=== PATIENT | female | born 1950 | race Caucasian/White ===

== ENCOUNTER → 2018-09-04 | Outpatient (CLI) | payer MEDICARE ==
--- NOTE | 2018-09-05 11:20 | BD ---
EXAMINATION TYPE: Axial Bone Density DATE OF EXAM: 09/04/2018 COMPARISON: NONE CLINICAL HISTORY: Postmenopausal female Height: 60 Weight: 162.8 FRAX RISK QUESTIONS: Alcohol (3 or more units per day): no Family History (Parent hip fracture): no Glucocorticoids (More than 3mos): no (Ex: prednisone, prednisolone, methylprednisolone, dexamethasone, and hydrocortisone). History of Fracture in Adulthood: yes Secondary Osteoporosis: 1. Type 1 Diabetes: no 2. Hyperthyroidism: no 3. Menopause before 45: no 4. Malnutrition: no 5. Chronic liver disease: no Rheumatoid Arthritis: no Current Tobacco Use: no RISK FACTORS HISTORY OF: Family History of Osteoporosis: no Active: no Diet low in dairy products/other sources of calcium: yes Postmenopausal woman: age55 Lost more than 2 inches in height since high school: yes MEDICATIONS: eye drops EXAM MEASUREMENTS: Bone mineral densitometry was performed using the [employer] System. Bone mineral density as measured about the Lumbar spine is: ----- L1-L4(G/cm2): 1.057 T Score Values are as follows: ----- L2: -1.8 ----- L3: -0.4 ----- L4: -0.5 ----- L1-L4: -1.0 Bone mineral density : baseline Bone mineral density about the R hip (g/cm2): 0.784 Bone mineral density about the L hip (g/cm2): 0.719 T Score values are as follows: -----R Neck: -1.8 -----L Neck: -2.3 -----R Total: -1.3 -----L Total: -1.4 Bone mineral density : baseline IMPRESSION: Osteopenia (T Score between -2.5 and -1). There is slightly increased risk of fracture and the patient may be considered for treatment. Re-Screen 2-5 years. NOTE: T-SCORE=SD OF THE YOUNG ADULT MEAN.
--- NOTE | 2018-09-08 12:16 | MM ---
Reason for exam: screening (asymptomatic). Last mammogram was performed 4 years and 3 months ago. History: Patient is postmenopausal. MG Screening Mammo w CAD Bilateral CC and MLO view(s) were taken. Prior study comparison: June 17, 2014, left breast MG work up mamm w CAD LT. June 08, 2014, bilateral MG screening mammo w CAD. There are scattered fibroglandular densities. No significant changes when compared with prior studies. ASSESSMENT: Negative, BI-RAD 1 RECOMMENDATION: Routine screening mammogram of both breasts in 1 year.
== END | disposition home or self-care (01) ==
LOC: RADMAMWWP 15:31
PROVIDERS: ATTEND Nurse Practitioner Women's Health
DX: Z12.31 Encounter for screening mammogram for malignant neoplasm of breast (principal); M85.80 Other specified disorders of bone density and structure, unspecified site; Z78.0 Asymptomatic menopausal state
CPT/HCPCS: 77067; 77080

== ENCOUNTER 2018-09-20 21:50 | Observation (INO) | payer MEDICARE ==
[2018-09-20] MEDS ORDERED: SODIUM CHLORIDE 0.9% 500 ML 500 ML IV STA (21:59)
[2018-09-20 22:44] LABS: Anisocytosis Slight; Basophils % (A) 0 %; Eosinophils # (A) 0.1 k/uL (0-0.7); Eosinophils % (A) 1 %; Hypochromasia Marked; Lymphocytes # (A) 1.7 k/uL (1.0-4.8); Lymphocytes % (A) 16 %; MCH 14.9 pg (25.0-35.0); MCV 59.5 fL (80.0-100.0); Mean Platelet Volume 6.4; Microcytosis Marked; Monocytes # (A) 0.4 k/uL (0-1.0); Monocytes % (A) 4 %; Neutrophils # (A) 8.1 k/uL (1.3-7.7); Neutrophils % (A) 77 %; Platelet Count 482 k/uL (150-450); Poikilocytosis Slight; RDW 18.8 % (11.5-15.5); WBC 10.6 k/uL (3.8-10.6)
--- NOTE | 2018-09-20 22:46 | ED ---
Recheck HPI <See Rodriguez - Last Filed: 09/21/18 00:46> - General Source: patient Mode of arrival: wheelchair Limitations: no limitations <Pina Byrne - Last Filed: 09/21/18 03:15> - General Chief Complaint: Recheck/Abnormal Lab/Rx Stated Complaint: Dr brooks-low hemoglobin Time Seen by Provider: 09/20/18 21:59 - History of Present Illness Initial Comments: 67-year-old female sent by primary care provider for low hemoglobin. Patient states she has not seen a primary provider and last 5-6 years as she has been taken care of her mother. She states she was sent for laboratory values prior to her initial visit with a new practitioner. She was called when she had a low hemoglobin reading. Patient states she has had some shortness of breath for the past 6 months with ambulation She states it improved with sitting still. Patient also admits to cold intolerance. Patient denies any palpitations, syncope, presyncope, chest pain, dizziness, melena, hematochezia, hematemesis, coffee-ground emesis. Patient states she does have history of hemorrhoids and does have occasional rectal bleeding with constipation. Patient denies any recent diarrhea, abdominal pain, nausea, vomiting, fever, chills, lower extremity edema, smoking history. Patient denies any wheezing, calf swelling or pain, recent travel, history of cancer. Remainder of ROS negative, upon arrival patient is well-appearing, no signs of acute distress. Vital signs reveal elevation of heart rate and blood pressure. Remainder of vital signs within a couple limits. (Pina Byrne) - Related Data Home Medications Medication Instructions Recorded Confirmed Naproxen Sodium [Aleve] 220 mg PO DAILY 09/20/18 09/20/18 Allergies Allergy/AdvReac Type Severity Reaction Status Date / Time No Known Allergies Allergy Verified 09/20/18 22:50 Review of Systems ROS Other: All systems not noted in ROS Statement are negative. <See Rodriguez - Last Filed: 09/21/18 00:46> ROS Other: All systems not noted in ROS Statement are negative. <Pina Byrne - Last Filed: 09/21/18 03:15> ROS Statement: Those systems with pertinent positive or pertinent negative responses have been documented in the HPI. Past Medical History Past Medical History: No Reported History History of Any Multi-Drug Resistant Organisms: None Reported Past Surgical History: No Surgical Hx Reported Past Psychological History: No Psychological Hx Reported Smoking Status: Never smoker Past Alcohol Use History: Rare Past Drug Use History: None Reported <Pina Byrne - Last Filed: 09/21/18 03:15> General Exam <RodriguezSee - Last Filed: 09/21/18 00:46> Limitations: no limitations <Pina Byrne - Last Filed: 09/21/18 03:15> - General Exam Comments Initial Comments: General: The patient is awake and alert, in no distress, and does not appear acutely ill. Eye: Pupils are equal, round and reactive to light, extra-ocular movements are intact. No nystagmus. There is normal conjunctiva bilaterally. No signs of icterus. Pale her eyelids, mucous membranes Ears, nose, mouth and throat: There are moist mucous membranes and no oral lesions. Neck: The neck is supple, there is no tenderness or JVD. Cardiovascular: There is a regular rate and rhythm. No murmur, rub or gallop is appreciated. Respiratory: Lungs are clear to auscultation, respirations are non-labored, breath sounds are equal. No wheezes, stridor, rales, or rhonchi. Gastrointestinal: Soft, non-distended, non-tender abdomen without masses or organomegaly noted. There is no rebound or guarding present. No CVA tenderness. Bowel sounds are unremarkable. Musculoskeletal: Normal ROM, no tenderness. Strength 5/5. Sensation intact. Pulses equal bilaterally 2+. Neurological: A&O x 3. CN II-XII intact, There are no obvious motor or sensory deficits. Coordination appears grossly intact. Speech is normal. Skin: Skin is warm and dry and no rashes or lesions are noted. Psychiatric: Cooperative, appropriate mood & affect, normal judgment. (Pina Byrne) Course <See Rodriguez - Last Filed: 09/21/18 00:46> <Pina Byrne - Last Filed: 09/21/18 03:15> Vital Signs 09/20/18 09/21/18 09/21/18 21:52 00:45 00:55 Temperature 99.0 F 98.4 F 98.3 F Pulse Rate 104 H 81 82 Respiratory 20 16 16 Rate Blood Pressure 207/77 147/75 159/65 O2 Sat by Pulse 100 99 100 Oximetry 09/21/18 09/21/18 01:25 02:35 Temperature 98.0 F 98.0 F Pulse Rate 75 73 Respiratory 16 16 Rate Blood Pressure 151/85 148/80 O2 Sat by Pulse 100 100 Oximetry - Reevaluation(s) Reevaluation #1: 09/21/18 00:47 Dr. Mathew notified of admission (See Rodriguez) Medical Decision Making - Lab Data Result diagrams: 09/20/18 22:26 09/20/18 22:26 <See Rodriguez - Last Filed: 09/21/18 00:46> - Lab Data Result diagrams: 09/20/18 22:26 09/20/18 22:26 <iPna Byrne - Last Filed: 09/21/18 03:15> - Medical Decision Making Patient reevaluated by myself, Dr. Rodriguez. Patient complains of fatigue and exertional dyspnea. Heart rate is 1:15 at this time. Patient and family updated. Dr. Mathew paged for admission. (See Rodriguez) Hemoglobin 6.3. Patient is symptomatic with shortness of breath in relation. EKG no acute findings. Troponin negative. No lower extremity edema. Lung examination clear. Patient well-appearing at this time do feel patient's shortness of breath is secondary to anemia. Occult blood negative. Patient is not on anticoagulation therapy. At this time I will transfuse patient for symptomatic anemia with hemoglobin less than 7. No transfusion reaction noted. Patient admitted for observation, patient's primary care provider Dr. Mathew accepted admission. No further orders after admitting provider discussed case with attending provider Dr. Rodriguez. (Pina Byrne) - Lab Data Lab Results 09/20/18 09/20/18 09/20/18 Range/Units 22:23 22:24 22:26 WBC (3.8-10.6) k/uL RBC (3.80-5.40) m/uL Hgb (11.4-16.0) gm/dL Hct (34.0-46.0) % MCV (80.0-100.0) fL MCH (25.0-35.0) pg MCHC (31.0-37.0) g/dL RDW (11.5-15.5) % Plt Count (150-450) k/uL Neutrophils % % Lymphocytes % % Monocytes % % Eosinophils % % Basophils % % Neutrophils # (1.3-7.7) k/uL Lymphocytes # (1.0-4.8) k/uL Monocytes # (0-1.0) k/uL Eosinophils # (0-0.7) k/uL Basophils # (0-0.2) k/uL Hypochromasia Poikilocytosis Anisocytosis Microcytosis PT (9.0-12.0) sec INR (<1.2) APTT (22.0-30.0) sec Sodium (137-145) mmol/L Potassium (3.5-5.1) mmol/L Chloride (98-107) mmol/L Carbon Dioxide (22-30) mmol/L Anion Gap mmol/L BUN (7-17) mg/dL Creatinine (0.52-1.04) mg/dL Est GFR (CKD-EPI)AfAm (>60 ml/min/1.73 sqM) Est GFR (CKD-EPI)NonAf (>60 ml/min/1.73 sqM) Glucose (74-99) mg/dL Calcium (8.4-10.2) mg/dL Total Bilirubin (0.2-1.3) mg/dL AST (14-36) U/L ALT (9-52) U/L Alkaline Phosphatase (38-126) U/L Total Creatine Kinase (30-135) U/L CK-MB (CK-2) (0.0-2.4) ng/mL CK-MB (CK-2) Rel Index Troponin I (0.000-0.034) ng/mL Total Protein (6.3-8.2) g/dL Albumin (3.5-5.0) g/dL Stool Occult Blood Negative (Negative) Blood Type O Positive Blood Type Confirm O Positive Blood Type Recheck CABO Indicated Antibody Screen NEGATIVE Crossmatch See Detail Spec Expiration Date 09/23/2018232509/20/18 09/20/18 09/20/18 Range/Units 22:26 22:26 22:26 WBC 10.6 (3.8-10.6) k/uL RBC 4.20 (3.80-5.40) m/uL Hgb 6.3 L* (11.4-16.0) gm/dL Hct 25.0 L (34.0-46.0) % MCV 59.5 L (80.0-100.0) fL MCH 14.9 L (25.0-35.0) pg MCHC 25.0 L (31.0-37.0) g/dL RDW 18.8 H (11.5-15.5) % Plt Count 482 H (150-450) k/uL Neutrophils % 77 % Lymphocytes % 16 % Monocytes % 4 % Eosinophils % 1 % Basophils % 0 % Neutrophils # 8.1 H (1.3-7.7) k/uL Lymphocytes # 1.7 (1.0-4.8) k/uL Monocytes # 0.4 (0-1.0) k/uL Eosinophils # 0.1 (0-0.7) k/uL Basophils # 0.0 (0-0.2) k/uL Hypochromasia Marked Poikilocytosis Slight Anisocytosis Slight Microcytosis Marked PT (9.0-12.0) sec INR (<1.2) APTT (22.0-30.0) sec Sodium 135 L (137-145) mmol/L Potassium 4.5 (3.5-5.1) mmol/L Chloride 102 (98-107) mmol/L Carbon Dioxide 23 (22-30) mmol/L Anion Gap 10 mmol/L BUN 17 (7-17) mg/dL Creatinine 0.96 (0.52-1.04) mg/dL Est GFR (CKD-EPI)AfAm 71 (>60 ml/min/1.73 sqM) Est GFR (CKD-EPI)NonAf 61 (>60 ml/min/1.73 sqM) Glucose 127 H (74-99) mg/dL Calcium 9.5 (8.4-10.2) mg/dL Total Bilirubin 0.6 (0.2-1.3) mg/dL AST 20 (14-36) U/L ALT 22 (9-52) U/L Alkaline Phosphatase 104 (38-126) U/L Total Creatine Kinase 79 (30-135) U/L CK-MB (CK-2) 0.5 (0.0-2.4) ng/mL CK-MB (CK-2) Rel Index 0.6 Troponin I <0.012 (0.000-0.034) ng/mL Total Protein 7.9 (6.3-8.2) g/dL Albumin 4.6 (3.5-5.0) g/dL Stool Occult Blood (Negative) Blood Type Blood Type Confirm Blood Type Recheck Antibody Screen Crossmatch Spec Expiration Date 09/20/18 Range/Units 22:26 WBC (3.8-10.6) k/uL RBC (3.80-5.40) m/uL Hgb (11.4-16.0) gm/dL Hct (34.0-46.0) % MCV (80.0-100.0) fL MCH (25.0-35.0) pg MCHC (31.0-37.0) g/dL RDW (11.5-15.5) % Plt Count (150-450) k/uL Neutrophils % % Lymphocytes % % Monocytes % % Eosinophils % % Basophils % % Neutrophils # (1.3-7.7) k/uL Lymphocytes # (1.0-4.8) k/uL Monocytes # (0-1.0) k/uL Eosinophils # (0-0.7) k/uL Basophils # (0-0.2) k/uL Hypochromasia Poikilocytosis Anisocytosis Microcytosis PT 10.2 (9.0-12.0) sec INR 0.9 (<1.2) APTT 24.6 (22.0-30.0) sec Sodium (137-145) mmol/L Potassium (3.5-5.1) mmol/L Chloride (98-107) mmol/L Carbon Dioxide (22-30) mmol/L Anion Gap mmol/L BUN (7-17) mg/dL Creatinine (0.52-1.04) mg/dL Est GFR (CKD-EPI)AfAm (>60 ml/min/1.73 sqM) Est GFR (CKD-EPI)NonAf (>60 ml/min/1.73 sqM) Glucose (74-99) mg/dL Calcium (8.4-10.2) mg/dL Total Bilirubin (0.2-1.3) mg/dL AST (14-36) U/L ALT (9-52) U/L Alkaline Phosphatase (38-126) U/L Total Creatine Kinase (30-135) U/L CK-MB (CK-2) (0.0-2.4) ng/mL CK-MB (CK-2) Rel Index Troponin I (0.000-0.034) ng/mL Total Protein (6.3-8.2) g/dL Albumin (3.5-5.0) g/dL Stool Occult Blood (Negative) Blood Type Blood Type Confirm Blood Type Recheck Antibody Screen Crossmatch Spec Expiration Date - EKG Data EKG Comments: A 12-lead EKG was performed and shows the following: Rate is 85bpm, and rhythm is normal sinus. There are normal QRS complexes and normal R-wave progression. ST segments have no elevation or depression, and NH segments appear normal. Reviewed by myself and Dr Rodriguez. (Pina Byrne) Disposition <See Rodriguez - Last Filed: 09/21/18 00:46> Is patient prescribed a controlled substance at d/c from ED?: No Time of Disposition: 03:15 Decision to Admit Reason: Admit from EC Decision Date: 09/21/18 Decision Time: 00:00 <Pina Byrne - Last Filed: 09/21/18 03:15> Clinical Impression: Symptomatic anemia Disposition: ADMITTED IP TO THIS [facility] Condition: Stable
[2018-09-20 22:51] LABS: HGB 6.3 gm/dL (11.4-16.0)
[2018-09-20 22:59] LABS: INR 0.9 (<1.2); Partial Thromboplastin Time 24.6 sec (22.0-30.0); Prothrombin Time 10.2 sec (9.0-12.0)
[2018-09-20 23:15] LABS: Creatine Kinase 79 U/L (30-135)
[2018-09-20 23:17] LABS: Albumin 4.6 g/dL (3.5-5.0); Calcium 9.5 mg/dL (8.4-10.2); Potassium 4.5 mmol/L (3.5-5.1); Total Bilirubin 0.6 mg/dL (0.2-1.3); Total Protein 7.9 g/dL (6.3-8.2)
[2018-09-20 23:27] LABS: Creatine Kinase MB 0.5 ng/mL (0.0-2.4); Troponin I <0.012 ng/mL (0.000-0.034)
[2018-09-21] MEDS ORDERED: NALOXONE 0.4 MG/ML 1 ML VIAL IV PRN (00:52)
[2018-09-21] MEDS ORDERED: SODIUM CHLORIDE 0.9% 1,000 ML IV SCH (01:00)
[2018-09-21 03:49] LABS: Anisocytosis Moderate; Basophils % (A) 0 %; Eosinophils # (A) 0.2 k/uL (0-0.7); Eosinophils % (A) 2 %; HCT 25.3 % (34.0-46.0); Hypochromasia Marked; Lymphocytes # (A) 2.4 k/uL (1.0-4.8); Lymphocytes % (A) 23 %; MCH 16.8 pg (25.0-35.0); MCHC 27.9 g/dL (31.0-37.0); MCV 60.3 fL (80.0-100.0); Mean Platelet Volume 7.2; Microcytosis Marked; Monocytes # (A) 0.4 k/uL (0-1.0); Monocytes % (A) 4 %; Neutrophils # (A) 7.3 k/uL (1.3-7.7); Neutrophils % (A) 69 %; Platelet Count 440 k/uL (150-450); Poikilocytosis Moderate; RBC 4.19 m/uL (3.80-5.40); RDW 20.3 % (11.5-15.5); WBC 10.6 k/uL (3.8-10.6)
[2018-09-21 04:10] LABS: Albumin 4.2 g/dL (3.5-5.0); Calcium 9.3 mg/dL (8.4-10.2); Potassium 4.6 mmol/L (3.5-5.1); Total Bilirubin 1.7 mg/dL (0.2-1.3); Total Protein 7.2 g/dL (6.3-8.2)
[2018-09-21 05:02] VITALS: BMI 32.2
[2018-09-21 05:22] VITALS: RESP 18
[2018-09-21 21:33] VITALS: BP 166/77; PULSE 74; TEMP 98.2
[2018-09-22 07:11] LABS: Anisocytosis Moderate; HGB 8.1 gm/dL (11.4-16.0); Hypochromasia Marked; MCH 18.7 pg (25.0-35.0); MCV 64.5 fL (80.0-100.0); Mean Platelet Volume 7.9; Microcytosis Marked; Platelet Count 426 k/uL (150-450); Poikilocytosis Marked; RBC 4.34 m/uL (3.80-5.40)
--- NOTE | 2018-09-23 12:54 | P.HPIM ---
History of Present Illness H&P Date: 09/20/18 (computers down most of sunday) Chief Complaint: fatigue, hgb 6 Pt was sent to Er secondary to hgb obtained in office Sunday, 6.0. pt stayed that she had been taking between 3 to 6 otc Aleve daily over the past year. She had not carlos Doctor in years Review of Systems Constitutional: Reports as per HPI Ears, nose, mouth and throat: Reports as per HPI Cardiovascular: Reports as per HPI Respiratory: Reports as per HPI Gastrointestinal: Reports as per HPI Genitourinary: Reports as per HPI, Reports dysmenorrhea Menstruation: Reports as per HPI Musculoskeletal: Reports as per HPI Integumentary: Reports as per HPI, Reports color changes Neurological: Reports as per HPI Psychiatric: Reports as per HPI Past Medical History Past Medical History: No Reported History Additional Past Medical History / Comment(s): one kidney stone in early 30s History of Any Multi-Drug Resistant Organisms: None Reported Past Surgical History: No Surgical Hx Reported Additional Past Surgical History / Comment(s): cataracts bilat Past Psychological History: No Psychological Hx Reported Smoking Status: Never smoker Past Alcohol Use History: Rare Past Drug Use History: None Reported Medications and Allergies Home Medications Medication Instructions Recorded Confirmed Type Naproxen Sodium [Aleve] 220 mg PO DAILY 09/20/18 09/20/18 History Allergies Allergy/AdvReac Type Severity Reaction Status Date / Time No Known Allergies Allergy Verified 09/20/18 22:50 Physical Exam Osteopathic Statement: *. No significant issues noted on an osteopathic structural exam other than those noted in the History and Physical/Consult. Heent:peerla ,eomi, poor dental hygene Heart:tachycardia Lung:ctab Abd:soft, pos Bs, nontender no mass Ext no edema, no cyanosis, no claudication Neuro: wnl guiac neg per ER Results CBC & Chem 7: 09/21/18 20:15 09/21/18 03:28 Thrombosis Risk Factor Assmnt - Choose All That Apply Any of the Below Risk Factors Present?: Yes Each Factor Represents 1 point: Obesity (BMI >25) Other Risk Factors: Yes Each Risk Factor Represents 2 Points: Age 61-74 years Other congenital or acquired thrombophilia - If yes, enter type in comment: No Thrombosis Risk Factor Assessment Total Risk Factor Score: 3 Thrombosis Risk Factor Assessment Level: Moderate Risk Assessment and Plan (1) Symptomatic anemia Status: Acute Code(s): D64.9 - ANEMIA, UNSPECIFIED SNOMED Code(s): 419206959 Plan: transfuse 2 units prbc's rpt hgb 9.0 D/C home, appt in office sunday schedule egd/colonscopy as op JOSETTE nsaid at all Time with Patient: Greater than 30
--- NOTE | 2018-09-23 12:58 | P.DS ---
Providers Date of admission: 09/21/18 00:49 Expected date of discharge: 09/21/18 Attending physician: Jose Antonio Sainz Consults: none Primary care physician: Jose Antonio Sainz - Discharge Diagnosis(es) (1) Symptomatic anemia Status: Acute Patient Condition at Discharge: Stable Plan - Discharge Summary Discharge Rx Participant: Yes New Discharge Prescriptions: Discontinued Naproxen Sodium [Aleve] 220 mg PO DAILY Follow up Appointment(s)/Referral(s): Jose Antonio Sainz Jr, DO [Primary Care Provider] - 1-2 days Discharge Disposition: HOME SELF-CARE
--- NOTE | 2018-09-23 15:39 | CDI ---
Documentation Clarification Form Date: 09/23/18 From: Concepcion Martinez Phone: If you have a question regarding this query, please contact Betzy Goff at [phone] between 8am and 5pm. Admit Date: 09/21/2018 12:49:00 AM Patient Name: Betzy Rowe Visit Number: [id number] Discharge Date: 09/21/2018 9:52:00 PM ATTENTION: The Clinical Documentation Specialists (CDI) and [facility] Coding Staff appreciate your assistance in clarifying documentation. Please respond to the clarification below the line at the bottom and electronically sign. The CDI & [facility] Coding staff will review the response and follow-up if needed. Please note: Queries are made part of the Legal Health Record. If you have any questions, please contact the author of this message via ITS. Dr. Jose Antonio Sainz A diagnosis of anemia lacks specificity to accurately reflect your patients severity of condition and clarification is needed. History/Risk Factors: Patient has a history of hemorrhoids and does have occasional rectal bleeding with constipation. Clinical indicators: Fatigue and low hgb. Hemoglobin: 6.3 Hematocrit: 25.0 Treatment: 1 unit of PRBCs transfused, monitoring hgb & hct. In order to capture the severity of condition, please clarify the type of anemia and etiology if known: Acute blood loss anemia Acute on chronic blood loss anemia Chronic blood loss anemia Iron deficiency anemia Anemia due to malignancy Nutritional anemia Anemia of chronic kidney disease Unable to determine Other, please specify MTDD
== END 2018-09-21 21:52 | disposition home or self-care (01) ==
LOC: EC 21:50 → INTOOBSV 09-21 00:49 → 3SCARD 09-21 00:49 → 3NMEDONC 09-21 02:06 → UNDODISIN 09-21 21:52
PROVIDERS: ADMIT Family Medicine; ATTEND Family Medicine
PROC: 30233N1 Transfusion of Nonautologous Red Blood Cells into Peripheral Vein, Percutaneous Approach (ICD-10-PCS; principal; 2018-09-21)
DX: D64.9 Anemia, unspecified (principal); K64.9 Unspecified hemorrhoids; N94.6 Dysmenorrhea, unspecified; Z87.442 Personal history of urinary calculi; Z79.1 Long term (current) use of non-steroidal anti-inflammatories (NSAID); E66.9 Obesity, unspecified; Z68.32 Body mass index [BMI] 32.0-32.9, adult
CPT/HCPCS: 36430; 99285; 36415; 93005; 86900; 86901; 80053 ×2; 82550; 82553; 84484; 85025 ×2; 85027; 85610; 85730; 86850; 86920 ×2; 82272; G0378 ×2; P9016

== ENCOUNTER → 2020-04-08 | Outpatient (CLI) | payer MEDICARE ==
--- NOTE | 2020-04-12 08:28 | MM ---
Reason for exam: screening (asymptomatic). Last mammogram was performed 1 year and 7 months ago. History: Patient is postmenopausal. Physical Findings: A clinical breast exam by your physician is recommended on an annual basis and results should be correlated with mammographic findings. MG 3D Screening Mammo W/Cad Bilateral CC and MLO view(s) were taken. Prior study comparison: September 04, 2018, bilateral MG screening mammo w CAD. June 17, 2014, left breast MG work up mamm w CAD LT. There are scattered fibroglandular densities. No significant changes when compared with prior studies. ASSESSMENT: Negative, BI-RAD 1 RECOMMENDATION: Routine screening mammogram of both breasts in 1 year.
== END | disposition home or self-care (01) ==
LOC: RADMAMWWP 15:21
PROVIDERS: ATTEND Nurse Practitioner Women's Health
DX: Z12.31 Encounter for screening mammogram for malignant neoplasm of breast (principal)
CPT/HCPCS: 77063; 77067

== ENCOUNTER → 2021-05-09 | Outpatient (CLI) | payer MEDICARE ==
--- NOTE | 2021-05-09 15:39 | BD ---
EXAMINATION TYPE: Axial Bone Density DATE OF EXAM: 05/09/2021 COMPARISON: 09/04/2018 CLINICAL HISTORY: Height: 59.2 IN Weight: 166 LBS RISK FACTORS HISTORY OF: Active: LIMITED Diet low in dairy products/other sources of calcium: YES Postmenopausal woman: AGE 50 MEDICATIONS: Thyroid Medications: YES Which medication: Levothyroxine How Lon YEARS Additional Medications: VIT D, LEVOTHYROXINE,ANTACID, STATIN EXAM MEASUREMENTS: Bone mineral densitometry was performed using the [employer] System. Bone mineral density as measured about the Lumbar spine is: ----- L1-L4(G/cm2): 0.938 T Score Values are as follows: ----- L2: -3.2 ----- L3: -1.1 ----- L4: -1.5 ----- L1-L4: -2.0 Bone mineral density has: Decreased -11.1% since study of: 09/04/2018 Bone mineral density about the R hip (g/cm2): 0.747 Bone mineral density about the L hip (g/cm2): 0.630 T Score values are as follows: -----R Neck: -2.1 -----L Neck: -2.9 -----R Total: -2.0 -----L Total: -2.0 Bone mineral density has: Decreased -9.7% since study of: 09/04/2018 IMPRESSION: Osteopenia NOTE: T-SCORE=SD OF THE YOUNG ADULT MEAN.
--- NOTE | 2021-05-11 09:32 | MM ---
Reason for exam: screening (asymptomatic). Last mammogram was performed 1 year and 1 month ago. History: Patient is postmenopausal. Physical Findings: A clinical breast exam by your physician is recommended on an annual basis and results should be correlated with mammographic findings. MG 3D Screening Mammo W/Cad Bilateral CC and MLO view(s) were taken. Prior study comparison: April 08, 2020, bilateral MG 3d screening mammo w/cad. September 04, 2018, bilateral MG screening mammo w CAD. June 08, 2014, bilateral MG screening mammo w CAD. There are scattered fibroglandular densities. No significant changes when compared with prior studies. ASSESSMENT: Negative, BI-RAD 1 RECOMMENDATION: Routine screening mammogram of both breasts in 1 year.
== END | disposition home or self-care (01) ==
LOC: RADMAMWWP 12:33
PROVIDERS: ATTEND Family Medicine
DX: Z12.31 Encounter for screening mammogram for malignant neoplasm of breast (principal); M85.80 Other specified disorders of bone density and structure, unspecified site
CPT/HCPCS: 77063; 77067; 77080

== ENCOUNTER 2022-03-12 17:18 | Emergency (ER) | payer MEDICARE ==
[2022-03-12 18:58] VITALS: BP 143/97; PULSE 100; RESP 18; TEMP 98.2
[2022-03-12] MEDS ORDERED: ACET/COD 300 MG/30 MG STARTER PACK 6 TAB BTL PO STA (21:43)
--- NOTE | 2022-03-12 21:43 | ED ---
General Adult HPI - General Chief complaint: Skin/Abscess/Foreign Body Stated complaint: Rash Time Seen by Provider: 03/12/22 21:20 Source: patient, family, RN notes reviewed, old records reviewed Mode of arrival: ambulatory Limitations: no limitations - History of Present Illness Initial comments: Well-appearing 71-year-old female presents ambulatory with a family member complaining of rash around her mouth for 3 weeks. Patient states that she seen her primary care doctor who prescribed her amoxicillin and clindamycin lotion. She states that it continues to be red and burning, not getting better. She denies any other rashes. No peeling skin, no fevers, no nausea, vomiting or diarrhea. She was told to follow-up with dermatology but cannot get in until the end of March. She states that she cannot handle the discomfort and tenderness. Bobby is not helping with her pain. -: week(s) (3) Location: face (around mouth ) Radiation: non-radiation Quality: burning Consistency: constant Improves with: none Associated Symptoms: denies other symptoms Treatments Prior to Arrival: other (Amoxicillin and clindamycin lotion) - Related Data Previous Rx's Medication Instructions Recorded Tacrolimus [Tacrolimus 0.1%] 1 applic TOPICAL BID 21 Days #60 gm 03/12/22 Allergies Allergy/AdvReac Type Severity Reaction Status Date / Time No Known Allergies Allergy Verified 03/12/22 18:58 Review of Systems ROS Statement: Those systems with pertinent positive or pertinent negative responses have been documented in the HPI. ROS Other: All systems not noted in ROS Statement are negative. Past Medical History Past Medical History: No Reported History Additional Past Medical History / Comment(s): one kidney stone in early 30s and one in early 20s History of Any Multi-Drug Resistant Organisms: None Reported Past Surgical History: No Surgical Hx Reported Additional Past Surgical History / Comment(s): cataracts bilat Past Psychological History: No Psychological Hx Reported Past Alcohol Use History: Rare Past Drug Use History: None Reported General Exam Limitations: no limitations General appearance: alert, in no apparent distress Head exam: Present: atraumatic Eye exam: Present: normal appearance. Absent: periorbital swelling, periorbital tenderness ENT exam: Present: mucous membranes moist, other (poor dentition) Neck exam: Present: full ROM. Absent: tenderness, meningismus, lymphadenopathy Respiratory exam: Absent: respiratory distress, accessory muscle use Cardiovascular Exam: Present: regular rate Neurological exam: Present: alert, oriented X3, normal gait Psychiatric exam: Present: normal affect, normal mood Skin exam: Present: warm, erythema (perioral). Absent: cyanosis, diaphoretic, pallor Course Vital Signs 03/12/22 18:53 Temperature 98.2 F Pulse Rate 100 Respiratory 18 Rate Blood Pressure 143/97 O2 Sat by Pulse 98 Oximetry Medical Decision Making - Medical Decision Making Patient presents with perioral rash for 3 weeks. She did take amoxicillin as prescribed by her primary care doctor and has been using clindamycin lotion with no relief. She denies any fevers. No other rashes. No peeling skin. She does take medication for hypothyroid, GERD and cholesterol, no new medications. This appears to be perioral dermatitis. She was directed to stop using the clindamycin lotion. Use warm water to wash face daily and pat dry. Apply tacro limus cream twice a day. Follow-up with dermatology. Case discussed with Dr. Tillman. Disposition Clinical Impression: Perioral dermatitis Disposition: HOME SELF-CARE Condition: Good Instructions (If sedation given, give patient instructions): Dermatitis (ED) Additional Instructions: Stop using the clindamycin lotion. Do not put any other makeup or lotions on face. Wash face with warm water only, no soaps and pat dry. Apply tacrolimus cream twice a day and follow up with dermatology. Prescriptions: Tacrolimus [Tacrolimus 0.1%] 1 applic TOPICAL BID 21 Days #60 gm Is patient prescribed a controlled substance at d/c from ED?: No Referrals: Jose Antonio Sainz Jr, DO [Primary Care Provider] - 1-2 days Maureen oHpe MD [REFERRING] - 1-2 days Time of Disposition: 21:45
[2022-03-12] MEDS ORDERED: Acetaminophen-Codeine 300-30mg TAB PO STA (21:45)
== END 2022-03-12 22:10 | disposition home or self-care (01) ==
LOC: EC 17:18
DX: L71.0 Perioral dermatitis (principal)
CPT/HCPCS: 99282

== ENCOUNTER → 2022-05-31 | Outpatient (CLI) | payer MEDICARE ==
--- NOTE | 2022-06-01 10:07 | MM ---
Reason for Exam: Screening (asymptomatic). Last mammogram was performed 1 year(s) and 1 month(s) ago. Patient History: Menarche at age 12. Postmenopausal. Risk Values: Sonal 5 year model risk: 1.3%. NCI Lifetime model risk: 3.5%. Prior Study Comparison: 09/04/2018 Bilateral Screening Mammogram, [facility]. 04/08/2020 Bilateral Screening Mammogram, [facility]. 05/09/2021 Bilateral Screening Mammogram, [facility]. Tissue Density: There are scattered fibroglandular densities. Findings: Analyzed By CAD. There is no suspicious group of microcalcifications or new suspicious mass in either breast. No significant change from prior exams. Overall Assessment: Negative, BI-RAD 1 Management: Screening Mammogram of both breasts in 1 year. A clinical breast exam by your physician is recommended on an annual basis and results should be correlated with mammographic findings. Electronically signed and approved by: Baltazar Pearson D.O.
== END | disposition home or self-care (01) ==
LOC: RADMAMWWP 15:04
PROVIDERS: ATTEND Family Medicine
DX: Z12.31 Encounter for screening mammogram for malignant neoplasm of breast (principal); Z00.01 Encounter for general adult medical examination with abnormal findings
CPT/HCPCS: 77063; 77067

== ENCOUNTER 2022-07-18 16:43 | Emergency (ER) | payer MEDICARE ==
[2022-07-18] MEDS ORDERED: LIDOCAINE 1% INJ 10MG/ML (30 ML VIAL-PF) SQ ONE (16:51)
--- NOTE | 2022-07-18 16:57 | ED ---
Fall HPI - General Chief Complaint: Fall Stated Complaint: fall Time Seen by Provider: 07/18/22 16:45 - History of Present Illness Initial Comments: Patient is a 71-year-old female presenting to the emergency room via EMS after attempting to step out of a door and catching her boot on the ground causing her to fall forward landing on her left arm and face. She has a laceration left eyebrow; she denies any blurred vision, double vision or loss of vision. She denies any pain in any extremities including her left arm which she fell on. She denies any range of motion impairment in her left arm or any other extremities. She denies any syncope pre-or post fall, dizziness or lethargy. She has some pain at the site of her laceration but denies any other head or neck pain. She reports taking aspirin periodically as for knee pain but not daily. She is not on any other blood thinners. She states that her tetanus vaccination is up-to-date. She has a history of renal stones along with arthritis but does not take any medications on a regular basis. - Related Data Previous Rx's Medication Instructions Recorded Tacrolimus [Tacrolimus 0.1%] 1 applic TOPICAL BID 21 Days #60 gm 03/12/22 Allergies Allergy/AdvReac Type Severity Reaction Status Date / Time No Known Allergies Allergy Verified 03/12/22 18:58 Review of Systems ROS Statement: Those systems with pertinent positive or pertinent negative responses have been documented in the HPI. ROS Other: All systems not noted in ROS Statement are negative. Past Medical History Past Medical History: Osteoarthritis (OA) Additional Past Medical History / Comment(s): one kidney stone in early 30s and one in early 20s History of Any Multi-Drug Resistant Organisms: None Reported Past Surgical History: No Surgical Hx Reported Additional Past Surgical History / Comment(s): cataracts bilat Past Psychological History: No Psychological Hx Reported Past Alcohol Use History: Rare Past Drug Use History: None Reported General Exam General appearance: alert, in no apparent distress Head exam: Present: normocephalic Expanded Head exam: Present: laceration (Above left eyebrow 3 cm in length). Absent: hematoma Eye exam: Present: normal appearance, PERRL, EOMI. Absent: scleral icterus, conjunctival injection, periorbital swelling ENT exam: Present: normal exam, mucous membranes moist Neck exam: Present: other (C-collar intact) Respiratory exam: Present: normal lung sounds bilaterally. Absent: respiratory distress, wheezes, rales, rhonchi, stridor Cardiovascular Exam: Present: regular rate, normal rhythm, normal heart sounds. Absent: systolic murmur, diastolic murmur, rubs, gallop, clicks GI/Abdominal exam: Present: soft, normal bowel sounds. Absent: distended, tenderness, guarding, rebound, rigid Extremities exam: Present: normal inspection, full ROM. Absent: tenderness, pedal edema, joint swelling Back exam: Present: normal inspection Neurological exam: Present: alert, oriented X3, CN II-XII intact Psychiatric exam: Present: normal affect, normal mood Skin exam: Present: other (Laceration as above) Course Vital Signs 07/18/22 07/18/22 17:05 17:09 Temperature 97.6 F Pulse Rate 97 88 Respiratory 16 16 Rate Blood Pressure 177/100 154/90 O2 Sat by Pulse 98 100 Oximetry Procedures - Laceration Laceration #1 Site: face (Above left eyebrow) Size (cm): 3 Description: linear Depth: simple, single layer Anesthetic Used: lidocaine 1% Anesthesia Technique: local infiltration Pre-repair: wound explored, irrigated extensively Type of Sutures: nylon Size of Sutures: 5-0 Number of Sutures: 6 Technique: simple, interrupted Patient Tolerated Procedure: well, no complications Medical Decision Making - Medical Decision Making 71-year-old female with trip and fall with head trauma no extremity pain or loss of consciousness. Due to head trauma will obtain CT of the brain and cervical spine. No indication for other diagnostic imaging or laboratory studies. Laceration above left eyebrow to be closed via sutures after computed tomography scan. Tetanus shot up-to-date. No indication for antibiotic therapy. She denies analgesic need at this time. Will monitor. CT of the brain and cervical spine without contrast image interpreted by me showing no intracranial bleed or mass effect. No cervical fracture or dislocation. Report by radiologist of CT also reviewed. Neck exam after cervical collar removal shows no evidence of laceration, tenderness or muscle spasms. Laceration closure above left eyebrow without complication. Wound care and follow-up instructions and return parameters regarding head trauma reviewed. Will discharge home with a Tylenol 3 starter pack to utilize for pain as needed advising to avoid the use of aspirin for pain. Case discussed with Dr. Gomez. - Radiology Data Radiology results: report reviewed, image reviewed Computed tomography scan of the brain and cervical spine as interpreted by radiologist cerebral atrophy. No acute intracranial abnormalities. Mild cervical spondylitic changes. No fracture Disposition Clinical Impression: Fall, Laceration Disposition: HOME SELF-CARE Instructions (If sedation given, give patient instructions): Care For Your Stitches (ED), Laceration (ED), Fall Prevention (ED) Additional Instructions: Please keep wound clean and dry. Monitor for signs and symptoms of infection and seek medical attention as appropriate if symptoms occur. Utilize Tylenol 3 starter pack as needed for pain. Please follow-up with your primary care provider for suture removal in 5-7 days. Please return to the Emergency Department if symptoms worsen or any other concerns. Is patient prescribed a controlled substance at d/c from ED?: No Referrals: Jose Antonio Sainz Jr, DO [Primary Care Provider] - 1-2 days Time of Disposition: 17:56
[2022-07-18 17:09] VITALS: RESP 16; TEMP 97.6
--- NOTE | 2022-07-18 17:37 | CT ---
EXAMINATION TYPE: CT brain amol molina con DATE OF EXAM: 07/18/2022 COMPARISON: None HISTORY: Fall CT DLP: 1314.9 mGycm Automated exposure control for dose reduction was used. Images of the brain and cervical spine obtained with no contrast. There is cerebral cortical atrophy. There is no mass effect or midline shift. No sign of intracranial hemorrhage. Calvarium is intact. There is normal aeration of the mastoid sinuses. Sella turcica appe ars normal. The cervical vertebra have normal alignment. No compression fracture. There is some degenerative disc space narrowing at C5-6 with spurring of the endplates. There is multilevel cervical facet arthropat hy. IMPRESSION: Cerebral atrophy. No acute intracranial abnormality. Mild cervical spondylotic changes. No fracture.
[2022-07-18] MEDS ORDERED: ACET/COD 300 MG/30 MG STARTER PACK 6 TAB BTL PO STA (17:48)
[2022-07-18 18:06] VITALS: BP 154/90; PULSE 88
== END 2022-07-18 18:30 | disposition home or self-care (01) ==
LOC: EC 16:43
DX: S01.112A Laceration without foreign body of left eyelid and periocular area, initial encounter (principal); W01.0XXA Fall on same level from slipping, tripping and stumbling without subsequent striking against object, initial encounter
CPT/HCPCS: 12013; 70450; 72125; 99283

== ENCOUNTER → 2023-06-28 | Outpatient (CLI) | payer MEDICARE ==
--- NOTE | 2023-06-29 20:44 | MM ---
Reason for Exam: Screening (asymptomatic). Last mammogram was performed 1 year(s) and 1 month(s) ago. Patient History: Menarche at age 12. Postmenopausal. Risk Values: Sonal 5 year model risk: 1.3%. NCI Lifetime model risk: 3.3%. Prior Study Comparison: 04/08/2020 Bilateral Screening Mammogram, [facility]. 05/09/2021 Bilateral Screening Mammogram, [facility]. 05/31/2022 Bilateral MG 3D screening mammo w/cad, [facility]. Tissue Density: There are scattered fibroglandular densities. Findings: Analyzed By CAD. There is no suspicious group of microcalcifications or new suspicious mass in either breast. Overall Assessment: Negative, BI-RAD 1 Management: Screening Mammogram of both breasts in 1 year. . Patient should continue monthly self-breast exams. A clinical breast exam by your physician is recommended on an annual basis. This exam should not preclude additional follow-up of suspicious palpable abnormalities. Note on Sonal scores and lifetime risk: 1. A Sonal score greater than 3% is considered moderate risk. If this is the case, consider specialist referral to assess eligibility for a risk reducing agent. 2. If overall lifetime risk for the development of breast cancer is 20% or higher, the patient may qualify for future screening with alternating mammogram and breast MRI. Electronically signed and approved by: Amelia Carter M.D. Radiologist
== END | disposition home or self-care (01) ==
LOC: RADMAMWWP 12:45
PROVIDERS: ATTEND Family Medicine
DX: Z12.31 Encounter for screening mammogram for malignant neoplasm of breast (principal); Z78.0 Asymptomatic menopausal state
CPT/HCPCS: 77063; 77067

== ENCOUNTER 2025-03-13 18:07 | Emergency (ER) | payer MEDICARE ==
--- NOTE | 2025-03-13 18:24 | ED ---
Fall HPI - General Chief Complaint: Fall Stated Complaint: Fall Time Seen by Provider: 03/13/25 18:10 Source: EMS Mode of arrival: EMS - History of Present Illness Initial Comments: 74-year-old female with history of osteoarthritis here for a ground-level fall via EMS. Patient reported that around 4 AM today, she slipped as she was walking back to her bed from the bathroom and hit her head on her nightstand. She was found by her neighbor around 3 PM today and was sent in by EMS. She denied being on blood thinners. She denied loss of consciousness, bleeding, bruising, changes in speech, changes in vision, changes in hearing, headaches, tremors, changes in sensation, focal weakness, shortness of breath, chest pain, abdominal pain. - Related Data Home Medications Medication Instructions Recorded Confirmed Atorvastatin [Lipitor] 20 mg PO DAILY 03/13/25 03/13/25 Lansoprazole [Prevacid 24Hr OTC] 15 mg PO BID 03/13/25 03/13/25 Levothyroxine Sodium [Synthroid] 50 mcg PO DAILY 03/13/25 03/13/25 Allergies Allergy/AdvReac Type Severity Reaction Status Date / Time No Known Allergies Allergy Verified 03/13/25 19:44 Review of Systems ROS Statement: Those systems with pertinent positive or pertinent negative responses have been documented in the HPI. ROS Other: All systems not noted in ROS Statement are negative. Past Medical History Past Medical History: Osteoarthritis (OA) Additional Past Medical History / Comment(s): one kidney stone in early 30s and one in early 20s History of Any Multi-Drug Resistant Organisms: None Reported Past Surgical History: No Surgical Hx Reported Additional Past Surgical History / Comment(s): cataracts bilat Past Psychological History: No Psychological Hx Reported Smoking Status: Never smoker Past Alcohol Use History: Rare Past Drug Use History: None Reported General Exam - General Exam Comments Initial Comments: Physical examination: Vital signs reviewed General: non toxic, no distress, appears at stated age, thin appearing, in c- collar Head: atraumatic, normocephalic, symmetric Mouth: no lip lesion, mucus membranes moist Cardiovascular: S1S2 reg, no murmur Lungs: CTA bilateral, no rhonchi, no rales, no accessory muscle use Abdominal: soft, nondistended, nontender to palpation, no guarding Ext: muscle strength 5 out of 5 in all 4 extremities grossly, range of motion of right upper extremity limited due to neck pain, no gross muscle atrophy, no contractures, positive dorsalis pedis pulse bilateral, no edema Neuro: no gross focal neuro deficits, CN I to XII intact grossly Psych: Alert and oriented x3, appropriate affect and mood Limitations: no limitations Course Vital Signs 03/13/25 03/13/25 18:08 19:00 Temperature 99.1 F Pulse Rate 102 H 99 Respiratory 20 20 Rate Blood Pressure 132/96 145/94 O2 Sat by Pulse 99 99 Oximetry Medical Decision Making - Medical Decision Making Was pt. sent in by a medical professional or institution (, [employer], [employer]ODUCTION [employer] SUPERVISOR, urgent care, hospital, or custodial...) When possible be specific @ -[No] Did you speak to anyone other than the patient for history (EMS, parent, family, police, friend...)? What history was obtained from this source @ -[No] Did you review nursing and triage notes (agree or disagree)? Why? @ -I reviewed and agree with nursing and triage notes Were old charts reviewed (outside hosp., previous admission, EMS record, old EKG, old radiological studies, urgent care reports/EKG's, custodial records)? Report findings @ -[No old charts were reviewed] Differential Diagnosis? @ -Differential ground-level fall, mechanical: Hypoglycemia, arrhythmia, [place], CVA, trauma, intercranial hemorrhage, meningitis, this is not meant to be an all-inclusive list EKG interpreted by me (3pts min.). @ -As above X-rays interpreted by me (1pt min.). @ -None done CT interpreted by me (1pt min.). @ -CT negative for bleed or ischemia U/S interpreted by me (1pt. min.). @ -None done What testing was considered but not performed or refused? (CT, X-rays, U/S, labs)? Why? @ -None What meds were considered but not given or refused? Why? @ -None Did you discuss the management of the patient with other professionals (professionals i.e. [employer] Callejas, PRODUCTION CREW SUPERVISOR, lab, RT, psych nurse, social media community manager, waiter/waitress formal, teacher, equal opportunity officer, bilingual patient support caseworker)? Give summary @ -Dr. Gomez, supervising physician Was smoking cessation discussed for >3mins.? @ -[No] Was critical care preformed (if so, how long)? @ -[No] Were there social determinants of health that impacted care today? How? (Homelessness, low income, unemployed, alcoholism, drug addiction, transportation, low edu. Level, literacy, decrease access to med. care, longterm, rehab)? @ -[No] Was there de-escalation of care discussed even if they declined (Discuss DNR or withdrawal of care, Hospice)? DNR status @ -[No] What co-morbidities impacted this encounter? (DM, HTN, Smoking, COPD, CAD, Cancer, CVA, ARF, Chemo, Hep., AIDS, mental health diagnosis, sleep apnea, morbid obesity)? @ -[None] Was patient admitted / discharged? Hospital course, mention meds given and route, prescriptions, significant lab abnormalities, going to OR and other pertinent info. @ -Discharge. CT brain and cervical spine without contrast, IV fluid bolus orde red. CT brain and cervical spine without contrast negative for bleed, ischemia, fractures, noted edema on right posterior and left frontal scalp edema. Patient did not develop any new or worsening symptoms or complaints. Pain controlled. She is cleared for discharge and advised to return if she has intractable nausea, vomiting, headaches, ear ringing, lightheadedness, dizziness, focal weakness the next 48 hours. Advised to follow-up with PCP closely. Undiagnosed new problem with uncertain prognosis? @ -[No] Drug Therapy requiring intensive monitoring for toxicity (Heparin, Nitro, Insulin, Cardizem)? @ -No Were any procedures done? @ -No Diagnosis/symptom? @ -[default] Acute, or Chronic, or Acute on Chronic? @ -Acute Uncomplicated (without systemic symptoms) or Complicated (systemic symptoms)? @ -Complicated Side effects of treatment? @ -No Exacerbation, Progression, or Severe Exacerbation? @ -No Poses a threat to life or bodily function? How? (Chest pain, [place], [place], pneumonia, PE, COPD, DKA, ARF, appy, cholecystitis, CVA, Diverticulitis, Homicidal, Suicidal, threat to staff... and all critical care pts) @ -Yes - Lab Data Result diagrams: 03/13/25 18:43 03/13/25 19:19 Lab Results 07/18/25 07/18/25 07/18/25 Range/Units 18:43 18:43 19:19 WBC 20.93 H (4.50-10.00) 10*3/uL RBC 5.21 H (4.10-5.20) 10*6/uL Hgb 16.3 H (12.0-15.0) g/dL Hct 46.0 (37.2-46.3) % MCV 88.3 (80.0-97.0) fL MCH 31.3 (27.0-32.0) pg MCHC 35.4 (32.0-37.0) g/dL Plt Count 415 (140-440) 10*3/uL MPV 10.0 (9.5-12.2) fL Immature Gran % (Auto) 0.5 % Neutrophils % 88.2 % Lymphocytes % 5.9 % Monocytes % 5.1 % Eosinophils % 0.0 % Basophils % 0.3 % Immature Gran # 0.11 H (0.00-0.04) 10*3/uL Neutrophils # 18.46 H (1.80-7.70) 10*3/uL Lymphocytes # 1.23 (0.90-5.00) 10*3/uL Monocytes # 1.07 H (0.20-1.00) 10*3/uL Eosinophils # 0.00 L (0.04-0.35) 10*3/uL Basophils # 0.06 (0.00-0.10) 10*3/uL PT 12.8 H (10.0-12.5) sec INR 1.2 H (<1.2) APTT 29.8 (22.0-30.0) sec Sodium 135 L (137-145) mmol/L Potassium 5.7 H (3.5-5.1) mmol/L Chloride 98 (98-107) mmol/L Carbon Dioxide 20 L (22-30) mmol/L Anion Gap 17 mmol/L BUN 4 L (7-17) mg/dL Creatinine 0.45 L (0.52-1.04) mg/dL Est GFR (CKD-EPI)AfAm >90 (>60 ml/min/1.73 sqM) Est GFR (CKD-EPI)NonAf >90 (>60 ml/min/1.73 sqM) Glucose 134 H (74-99) mg/dL POC Glucose (mg/dL) (70-110) mg/dL POC Glu Administrative Services Specialist ID Calcium 10.0 (8.4-10.2) mg/dL Total Bilirubin 2.5 H (0.2-1.3) mg/dL AST 59 H (14-36) U/L ALT 21 (4-34) U/L Alkaline Phosphatase 128 H (38-126) U/L Creatine Kinase 734 H (30-135) U/L Total Protein 8.2 (6.3-8.2) g/dL Albumin 5.2 H (3.5-5.0) g/dL 03/13/25 Range/Units 20:00 WBC (4.50-10.00) 10*3/uL RBC (4.10-5.20) 10*6/uL Hgb (12.0-15.0) g/dL Hct (37.2-46.3) % MCV (80.0-97.0) fL MCH (27.0-32.0) pg MCHC (32.0-37.0) g/dL Plt Count (140-440) 10*3/uL MPV (9.5-12.2) fL Immature Gran % (Auto) % Neutrophils % % Lymphocytes % % Monocytes % % Eosinophils % % Basophils % % Immature Gran # (0.00-0.04) 10*3/uL Neutrophils # (1.80-7.70) 10*3/uL Lymphocytes # (0.90-5.00) 10*3/uL Monocytes # (0.20-1.00) 10*3/uL Eosinophils # (0.04-0.35) 10*3/uL Basophils # (0.00-0.10) 10*3/uL PT (10.0-12.5) sec INR (<1.2) APTT (22.0-30.0) sec Sodium (137-145) mmol/L Potassium (3.5-5.1) mmol/L Chloride (98-107) mmol/L Carbon Dioxide (22-30) mmol/L Anion Gap mmol/L BUN (7-17) mg/dL Creatinine (0.52-1.04) mg/dL Est GFR (CKD-EPI)AfAm (>60 ml/min/1.73 sqM) Est GFR (CKD-EPI)NonAf (>60 ml/min/1.73 sqM) Glucose (74-99) mg/dL POC Glucose (mg/dL) 127 H (70-110) mg/dL POC Glu Administrative Services Specialist EZEQUIEL Pavon Calcium (8.4-10.2) mg/dL Total Bilirubin (0.2-1.3) mg/dL AST (14-36) U/L ALT (4-34) U/L Alkaline Phosphatase (38-126) U/L Creatine Kinase (30-135) U/L Total Protein (6.3-8.2) g/dL Albumin (3.5-5.0) g/dL - EKG Data EKG Comments: Sinus tachycardia with a rate of 101 bpm, left axis deviation, QRS duration 72 MS, ST-T changes, QTc 384 MS Disposition Clinical Impression: Fall Disposition: HOME SELF-CARE Condition: Good Instructions (If sedation given, give patient instructions): Fall Prevention for Older Adults (ED) Additional Instructions: Every disease is a spectrum and a small chance still exists that a serious condition could develop, for this reason, please monitor yourself closely for new, changing or worsening symptoms, symptoms that persist beyond another 72 hours, advised to return if she has intractable nausea, vomiting, headaches, ear ringing, lightheadedness, dizziness, focal weakness, inability to tolerate/keep down fluids or your medications, inability to follow up with outpatient pro viders as instructed and should you experience these symptoms or should you have any further concerns for your wellbeing please return to the ED or call 911 immediately. PLEASE call your primary care physician as soon as possible to arrange / discuss plan for followup appointment. Appointment in the next 1-3 days is strongly encouraged if possible. PLEASE let us know here before you leave if there is anything further we can do to be of any assistance. Take care and feel Better! Is patient prescribed a controlled substance at d/c from ED?: No Referrals: Jose Antonio Sainz Jr, [Primary Care Provider] - 1-2 days Time of Disposition: 20:51
[2025-03-13] MEDS: HYDROmorphone 0.5 MG/0.5 ML SYRINGE IVP STA (18:46)
[2025-03-13 18:56] LABS: Basophils # (A) 0.06 10*3/uL (0.00-0.10); Basophils % (A) 0.3 %; Eosinophils # (A) 0.00 10*3/uL (0.04-0.35); Eosinophils % (A) 0.0 %; HCT 46.0 % (37.2-46.3); HGB 16.3 g/dL (12.0-15.0); Lymphocytes # (A) 1.23 10*3/uL (0.90-5.00); Lymphocytes % (A) 5.9 %; MCH 31.3 pg (27.0-32.0); MCHC 35.4 g/dL (32.0-37.0); MCV 88.3 fL (80.0-97.0); Monocytes # (A) 1.07 10*3/uL (0.20-1.00); Monocytes % (A) 5.1 %; Neutrophils # (A) 18.46 10*3/uL (1.80-7.70); Neutrophils % (A) 88.2 %; Platelet Count 415 10*3/uL (140-440); RBC 5.21 10*6/uL (4.10-5.20); RDW 12.1 % (11.5-14.5); WBC 20.93 10*3/uL (4.50-10.00)
[2025-03-13] MEDS: ACETAMINOPHEN TAB 325 MG TAB PO STA (18:56)
[2025-03-13] MEDS: SODIUM CHLORIDE 0.9% 1,000 ML IV ONE (18:57)
[2025-03-13 19:13] LABS: INR 1.2 (<1.2); Partial Thromboplastin Time 29.8 sec (22.0-30.0); Prothrombin Time 12.8 sec (10.0-12.5)
--- NOTE | 2025-03-13 19:19 | CT ---
EXAMINATION TYPE: CT brain cspine wo con DATE OF EXAM: 03/13/2025 7:00 PM COMPARISON: None. CLINICAL INDICATION: Female, 74 years old with history of fall; Fall, pain TECHNIQUE: Brain: Multiple axial CT images of the brain were obtained without IV contrast. Cspine: Axial CT images from the skull base to the inferior aspect of T2 we obtained without intraven ous contrast. Coronal and sagittal reformatted images were also reviewed. . CT DLP: 1279.4 mGycm, Automated exposure control for dose reduction was used. FINDINGS: Brain: Extra-axial spaces: No abnormal extra-axial fluid collections. Ventricular system: Dilatation in proportion to cerebral atrophy. Cerebral parenchyma: Cerebral atrophy. No acute intraparenchymal hemorrhage or mass effect. The lobo -white junction is well differentiated. Scattered hypoattenuating areas are seen within the white mat ter. Cerebellum: Unremarkable. Mass effect: No evidence of midline shift. Intracranial vasculature: Atherosclerotic calcifications of the intracranial vessels. Soft tissues: Right posterior scalp edema and left frontal scalp edema. Calvarium/osseous structures: No depressed skull fracture. Paranasal sinuses and mastoid air cells: Mild scattered mucosal thickening and or secretions. Visualized orbits: Orbital contents are intact. Cervical spine: Fracture: None. Osseous structures: Multilevel degenerative disc disease changes with endplate spurring and disc oste ophyte complex's. Vertebral alignment: Within normal limits. Spinal canal/Neural Foramina: No evidence of significant spinal canal narrowing. No evidence for sign ificant neural foraminal stenosis. Neck soft tissues: Prevertebral soft tissues are within normal limits. Other: The airway is patent. The lung apices are clear. IMPRESSION: 1. No acute intracranial process. 2. Nonspecific white matter changes, likely secondary to chronic small vessel ischemic disease. 3. No evidence of cervical spine fracture. 4. Moderate multilevel degenerative disc disease. 5. Right posterior and left frontal scalp edema. [facility], , 03/13/2025 7:17 PM
[2025-03-13 19:45] LABS: ALT 21 U/L (4-34); African American GFR (CKD) >90 (>60 ml/min/1.73 sqM); Anion Gap 17 mmol/L; Blood Urea Nitrogen 4 mg/dL (7-17); Calcium 10.0 mg/dL (8.4-10.2); Carbon Dioxide 20 mmol/L (22-30); Chloride 98 mmol/L (98-107); Non-African American GFR(CKD) >90 (>60 ml/min/1.73 sqM); Sodium 135 mmol/L (137-145); Total Protein 8.2 g/dL (6.3-8.2)
[2025-03-13 19:46] LABS: AST 59 U/L (14-36); Albumin 5.2 g/dL (3.5-5.0); Alkaline Phosphatase 128 U/L (38-126); Creatine Kinase 734 U/L (30-135); Glucose 134 mg/dL (74-99); Potassium 5.7 mmol/L (3.5-5.1)
[2025-03-13 20:02] LABS: Glucose,Whole Blood 127 mg/dL (70-110)
[2025-03-13 21:29] VITALS: BP 131/76; PULSE 81; RESP 16; TEMP 98.8
== END 2025-03-13 21:29 | disposition home or self-care (01) ==
LOC: EC 18:07
DX: R22.0 Localized swelling, mass and lump, head (principal); W01.0XXA Fall on same level from slipping, tripping and stumbling without subsequent striking against object, initial encounter; Y93.01 Activity, walking, marching and hiking; Y92.003 Bedroom of unspecified non-institutional (private) residence as the place of occurrence of the external cause
CPT/HCPCS: 36415; 70450; 72125; 80053; 82550; 85025; 85610; 85730; 96360; 96361; 99285

== ENCOUNTER 2025-03-18 14:25 | Inpatient (IN) | payer MEDICARE ==
--- NOTE | 2025-03-18 15:11 | ED ---
Recheck HPI - General Chief Complaint: Recheck/Abnormal Lab/Rx Stated Complaint: Fall Time Seen by Provider: 03/18/25 14:42 Source: patient, RN notes reviewed Mode of arrival: EMS Limitations: no limitations - History of Present Illness Initial Comments: This is a 74-year-old female with history of OA presenting via EMS with friends/neighbors for weakness x 5 days. Patient states she suffered a fall on 03/13/2025, being seen in this ER due to head injury after striking nightstand. States head CT at the time was normal and patient was discharged, finding she "got stiff" and "cannot walk/roll over" since the incident. Patient states she is "immobile" and needs assistance for even the simplest activities, ambulation or using the restroom. Patient states she "needs rehab", stating that she lives alone and requires assistance from friends and neighbors to perform basic daily activities at this point. Patient states she was on the floor that day for over 12 hours, mentioning having hallucinations at the time. Endorses ongoing tail bone pain as well. Denies fevers, chills, dizziness, chest pain, dyspnea, abdominal pain, N/V/D, dysuria, extremity paresthesia. Onset/Timin -: days(s) - Related Data Home Medications Medication Instructions Recorded Confirmed Atorvastatin [Lipitor] 20 mg PO DAILY 03/13/25 03/13/25 Lansoprazole [Prevacid 24Hr OTC] 15 mg PO BID 03/13/25 03/13/25 Levothyroxine Sodium [Synthroid] 50 mcg PO DAILY 03/13/25 03/13/25 Allergies Allergy/AdvReac Type Severity Reaction Status Date / Time No Known Allergies Allergy Verified 03/18/25 14:30 Review of Systems ROS Statement: Those systems with pertinent positive or pertinent negative responses have been documented in the HPI. ROS Other: All systems not noted in ROS Statement are negative. Past Medical History Past Medical History: Osteoarthritis (OA) Additional Past Medical History / Comment(s): one kidney stone in early 30s and one in early 20s History of Any Multi-Drug Resistant Organisms: None Reported Past Surgical History: No Surgical Hx Reported Additional Past Surgical History / Comment(s): cataracts bilat Past Psychological History: No Psychological Hx Reported Smoking Status: Never smoker Past Alcohol Use History: Rare Past Drug Use History: None Reported General Exam Limitations: no limitations General appearance: alert, in no apparent distress, cachectic Head exam: Present: atraumatic, normocephalic, normal inspection Eye exam: Present: normal appearance, PERRL, EOMI. Absent: scleral icterus, conjunctival injection, periorbital swelling ENT exam: Present: normal exam, mucous membranes moist Neck exam: Present: normal inspection. Absent: tenderness, meningismus, lymphadenopathy Respiratory exam: Present: normal lung sounds bilaterally. Absent: respiratory distress, wheezes, rales, rhonchi, stridor, accessory muscle use, decreased breath sounds, prolonged expiratory Cardiovascular Exam: Present: regular rate, normal rhythm, normal heart sounds. Absent: systolic murmur, diastolic murmur, rubs, gallop, clicks GI/Abdominal exam: Present: soft, normal bowel sounds. Absent: distended, tenderness, guarding, rebound, rigid Extremities exam: Present: normal inspection, full ROM, normal capillary refill, other (Bilateral upper and lower extremity distal neurovascular and motor function intact. Radial/posterior tibialis pulse +2 bilaterally). Absent: tenderness, pedal edema, joint swelling, calf tenderness Back exam: Present: vertebral tenderness (Positive sacrum/coccyx TTP. Remaining vertebral examination/palpation unremarkable without step-off or crepitus) Neurological exam: Present: alert, oriented X3, CN II-XII intact Psychiatric exam: Present: normal affect, normal mood Skin exam: Present: warm, dry, intact, normal color. Absent: rash Course Vital Signs 03/18/25 03/18/25 14:27 18:00 Temperature 98.4 F Pulse Rate 85 90 Respiratory 16 18 Rate Blood Pressure 140/95 157/93 O2 Sat by Pulse 100 96 Oximetry Medical Decision Making - Medical Decision Making Was pt. sent in by a medical professional or institution (, PA, BUSINESS MANAGEMENT MANAGER, urgent care, hospital, or long term...) When possible be specific @ -No Did you speak to anyone other than the patient for history (EMS, parent, family, police, friend...)? What history was obtained from this source @ -Friends and neighbors provided portion of HPI Did you review nursing and triage notes (agree or disagree)? Why? @ -I reviewed and agree with nursing and triage notes Were old charts reviewed (outside hosp., previous admission, EMS record, old EKG, old radiological studies, urgent care reports/EKG's, long term records)? Report findings @ -Chart reviewed from ER visit on 03/13/2025 where patient suffered a fall, striking her head on the nightstand. Head/cervical spine CT revealed no acute injury, intracranial hemorrhage or fracture/dislocation. Differential Diagnosis (chest pain, altered mental status, abdominal pain women, abdominal pain men, vaginal bleeding, weakness, fever, dyspnea, syncope, headache, dizziness, GI bleed, back pain, seizure, CVA, palpatations, mental health, musculoskeletal)? @ -Differential Weakness: Hypoglycemia, shock, sepsis, hyponatremia, anemia, infection, PR, ETOH, adverse medicine reaction, overdose, stroke, this is not meant to be an all-inclusive list. EKG interpreted by me (3pts min.). @ -Sinus rhythm without ST deviation or T wave inversion. Ventricular rate 77 bpm, KAMLESH 133 ms, QRS 73 ms, QTc 400 ms. X-rays interpreted by me (1pt min.). @ -Sacrum/coccyx x-ray shows no acute fracture. CT interpreted by me (1pt min.). @ -None done U/S interpreted by me (1pt. min.). @ -None done What testing was considered but not performed or refused? (CT, X-rays, U/S, labs)? Why? @ -None What meds were considered but not given or refused? Why? @ -None Did you discuss the management of the patient with other professionals (professionals i.e. , PA, BUSINESS MANAGEMENT MANAGER, lab, RT, psych nurse, administrator social welfare, computer assistant, teacher, veterans service officer, case packer)? Give summary @ -Spoke to Dr. Bryant that patient does not have any medical reason requiring admission and that patient must follow-up outpatient tomorrow morning for further referral to rehab. [employer] message sent to Dr. Bryant advising that patient is unable to ambulate and would not be able to follow-up for outpatient appointment. [employer] message sent that patient will be admitted and to contact Dr. Gomez regarding any questions. Was smoking cessation discussed for >3mins.? @ -No Was critical care preformed (if so, how long)? @ -No Were there social determinants of health that impacted care today? How? (Homelessness, low income, unemployed, alcoholism, drug addiction, transportation, low edu. Level, literacy, decrease access to med. care, residential, rehab)? @ -No Was there de-escalation of care discussed even if they declined (Discuss DNR or withdrawal of care, Hospice)? DNR status @ -No What co-morbidities impacted this encounter? (DM, HTN, Smoking, COPD, CAD, Cancer, CVA, ARF, Chemo, Hep., AIDS, mental health diagnosis, sleep apnea, morbid obesity)? @ -None Was patient admitted / discharged? Hospital course, mention meds given and route, prescriptions, significant lab abnormalities, going to OR and other pertinent info. @ -Patient provided IV normal saline. Lab work notable for WBC 13.51 with left shift without obvious infectious etiology. Electrolytes, kidney function, LFTs and UA largely unremarkable. Sacrum/coccyx x-ray shows no acute fracture. Spoke to Dr. Bryant who advised patient has no medical cause for admission at this time and advised patient follow-up outpatient for further management of weakness/condition. Patient ultimately admitted to observation. Discussed patient with Dr. Gomez. Undiagnosed new problem with uncertain prognosis? @ -No Drug Therapy requiring intensive monitoring for toxicity (Heparin, Nitro, Insulin, Cardizem)? @ -No Were any procedures done? @ -No Diagnosis/symptom? @ -Weakness, inability to ambulate Acute, or Chronic, or Acute on Chronic? @ -Acute Uncomplicated (without systemic symptoms) or Complicated (systemic symptoms)? @ -Complicated Side effects of treatment? @ -No Exacerbation, Progression, or Severe Exacerbation? @ -Progression Poses a threat to life or bodily function? How? (Chest pain, USA, PR, pneumonia, PE, COPD, DKA, ARF, appy, cholecystitis, CVA, Diverticulitis, Homicidal, Suicidal, threat to staff... and all critical care pts) @ -No - Lab Data Result diagrams: 03/18/25 15:27 03/18/25 16:35 Lab Results 03/18/25 03/18/25 03/18/25 Range/Units 15:27 16:35 17:30 WBC 13.51 H (4.50-10.00) 10*3/uL RBC 4.94 (4.10-5.20) 10*6/uL Hgb 15.2 H (12.0-15.0) g/dL Hct 44.2 (37.2-46.3) % MCV 89.5 (80.0-97.0) fL MCH 30.8 (27.0-32.0) pg MCHC 34.4 (32.0-37.0) g/dL Plt Count 352 (140-440) 10*3/uL MPV 10.4 (9.5-12.2) fL Immature Gran % (Auto) 0.5 % Neutrophils % 75.2 % Lymphocytes % 18.7 % Monocytes % 4.8 % Eosinophils % 0.5 % Basophils % 0.3 % Immature Gran # 0.07 H (0.00-0.04) 10*3/uL Neutrophils # 10.15 H (1.80-7.70) 10*3/uL Lymphocytes # 2.53 (0.90-5.00) 10*3/uL Monocytes # 0.65 (0.20-1.00) 10*3/uL Eosinophils # 0.07 (0.04-0.35) 10*3/uL Basophils # 0.04 (0.00-0.10) 10*3/uL Sodium 140 (137-145) mmol/L Potassium 3.5 (3.5-5.1) mmol/L Chloride 101 (98-107) mmol/L Carbon Dioxide 31 H (22-30) mmol/L Anion Gap 8 mmol/L BUN 9 (7-17) mg/dL Creatinine 0.55 (0.52-1.04) mg/dL Est GFR (CKD-EPI)AfAm >90 (>60 ml/min/1.73 sqM) Est GFR (CKD-EPI)NonAf >90 (>60 ml/min/1.73 sqM) Glucose 115 H (74-99) mg/dL Calcium 9.7 (8.4-10.2) mg/dL Phosphorus 3.2 (2.5-4.5) mg/dL Magnesium 2.2 (1.6-2.3) mg/dL Total Bilirubin 0.9 (0.2-1.3) mg/dL AST 30 (14-36) U/L ALT 22 (4-34) U/L Alkaline Phosphatase 132 H (38-126) U/L Total Protein 6.6 (6.3-8.2) g/dL Albumin 4.0 (3.5-5.0) g/dL Urine Color Yellow Urine Appearance Turbid H (Clear) Urine pH 7.0 (5.0-8.0) Ur Specific [place] 1.017 (1.001-1.035) Urine Protein Negative (Negative) Urine Glucose (UA) Negative (Negative) Urine Ketones Negative (Negative) Urine Blood Negative (Negative) Urine Nitrite Negative (Negative) Urine Bilirubin Negative (Negative) Urine Urobilinogen 3.0 (<2.0) mg/dL Ur Leukocyte Esterase Small H (Negative) Urine RBC 1 (0-5) /hpf Urine WBC 8 H (0-5) /hpf Ur Squamous Epith Cells 2 (0-4) /hpf Amorphous Sediment Rare H (None) /hpf Urine Mucus Rare H (None) /hpf Disposition Clinical Impression: Weakness, Unable to ambulate Disposition: ADMITTED IP TO THIS [facility] Condition: Fair Is patient prescribed a controlled substance at d/c from ED?: No Referrals: Jose Antonio Sainz Jr, DO [Primary Care Provider] - 1-2 days Tristan Bryant MD [STAFF PHYSICIAN] - 1-2 days Time of Disposition: 19:00 Decision Date: 03/18/25 Decision Time: 19:00
[2025-03-18 15:34] LABS: Basophils # (A) 0.04 10*3/uL (0.00-0.10); Basophils % (A) 0.3 %; Eosinophils # (A) 0.07 10*3/uL (0.04-0.35); Eosinophils % (A) 0.5 %; HCT 44.2 % (37.2-46.3); HGB 15.2 g/dL (12.0-15.0); Lymphocytes # (A) 2.53 10*3/uL (0.90-5.00); Lymphocytes % (A) 18.7 %; MCH 30.8 pg (27.0-32.0); MCHC 34.4 g/dL (32.0-37.0); MCV 89.5 fL (80.0-97.0); Monocytes # (A) 0.65 10*3/uL (0.20-1.00); Monocytes % (A) 4.8 %; Neutrophils # (A) 10.15 10*3/uL (1.80-7.70); Neutrophils % (A) 75.2 %; Platelet Count 352 10*3/uL (140-440); RBC 4.94 10*6/uL (4.10-5.20); RDW 12.7 % (11.5-14.5); WBC 13.51 10*3/uL (4.50-10.00)
--- NOTE | 2025-03-18 16:00 | XR ---
EXAMINATION TYPE: XR sacrum coccyx DATE OF EXAM: 03/18/2025 3:43 PM COMPARISON: None. CLINICAL INDICATION: Female, 74 years old with history of Tailbone pain following fall, pain TECHNIQUE: 3 view(s) obtained. FINDINGS: Sacroiliac joints have mild degenerative changes. No acute fractures are identified. Fecal debris ove rlies the distal sacrum and coccyx on the frontal projection. No displaced fractures are identified. Fecal debris is within the distal sigmoid colon and rectum overlying the sacrum and coccyx IMPRESSION: 1. No acute fracture sacrum and coccyx. 2. There is some limitation due to fecal retention on the frontal projection [facility], Workstation: [facility], 03/18/2025 3:57 PM
[2025-03-18] MEDS: SODIUM CHLORIDE 0.9% 500 ML 500 ML IV STA (16:54)
[2025-03-18 17:12] LABS: ALT 22 U/L (4-34); AST 30 U/L (14-36); African American GFR (CKD) >90 (>60 ml/min/1.73 sqM); Albumin 4.0 g/dL (3.5-5.0); Alkaline Phosphatase 132 U/L (38-126); Anion Gap 8 mmol/L; Blood Urea Nitrogen 9 mg/dL (7-17); Calcium 9.7 mg/dL (8.4-10.2); Carbon Dioxide 31 mmol/L (22-30); Chloride 101 mmol/L (98-107); Glucose 115 mg/dL (74-99); Magnesium 2.2 mg/dL (1.6-2.3); Non-African American GFR(CKD) >90 (>60 ml/min/1.73 sqM); Potassium 3.5 mmol/L (3.5-5.1); Sodium 140 mmol/L (137-145); Total Protein 6.6 g/dL (6.3-8.2)
[2025-03-18 18:16] LABS: Amorphous Sediment,Urine Rare /hpf; Bilirubin,Urine Negative (Negative); Blood,Urine Negative (Negative); Color,Urine Yellow; Glucose,Urine (UA) Negative (Negative); Ketones,Urine Negative (Negative); Leukocyte Esterase,Urine Small (Negative); Mucus,Urine Rare /hpf; Nitrite,Urine Negative (Negative); PH, Urine 7.0 (5.0-8.0); Protein,Urine Negative (Negative); RBC,Urine 1 /hpf (0-5); Specific Gravity,Urine 1.017 (1.001-1.035); Squamous Epithelial Cell,Urine 2 /hpf (0-4); Urobilinogen,Urine 3.0 mg/dL (<2.0); WBC,Urine 8 /hpf (0-5)
[2025-03-18] MEDS ORDERED: NALOXONE 0.4 MG/ML 1 ML VIAL IV PRN (19:36)
[2025-03-18] MEDS ORDERED: HYDROmorphone 1 MG/ML 1 ML SYRINGE IVP PRN (19:36)
[2025-03-18] MEDS: SODIUM CHLORIDE 0.9% 1,000 ML IV SCH (21:22)
[2025-03-18] MEDS: cefTRIAXone IN SWFI 1,000 MG/10 ML SYRINGE IVP STA (21:22)
[2025-03-18] MEDS: AZITHROMYCIN 500 MG in SODIUM CHLORIDE 0.9% 250 ML IVPB STA (21:22)
[2025-03-18] MEDS: HYDROmorphone 0.5 MG/0.5 ML SYRINGE IVP PRN (21:23)
--- NOTE | 2025-03-18 21:24 | XR ---
EXAMINATION TYPE: XR chest 2V DATE OF EXAM: 03/18/2025 9:18 PM COMPARISON: None TECHNIQUE: XR chest 2V Frontal and lateral views of the chest. CLINICAL INDICATION:Female, 74 years old with history of Difficulty breathing ; FINDINGS: Lungs/Pleura: There is no evidence of pleural effusion, focal consolidation, or pneumothorax. Pulmonary vascularity: Unremarkable. Heart/mediastinum: Cardiomediastinal silhouette is unremarkable. Musculoskeletal: Anterior wedging of the upper thoracic spine with increased thoracic kyphosis. IMPRESSION: No acute cardiopulmonary disease/process. [facility], , 03/18/2025 9:22 PM
[2025-03-18] MEDS: PANTOPRAZOLE 40 MG TABLET PO SCH (21:25)
[2025-03-19] MEDS: LEVOTHYROXINE 50 MCG TAB PO SCH (06:21)
[2025-03-19] MEDS: ATORVASTATIN 20 MG TAB PO SCH (08:47)
[2025-03-19 10:26] LABS: HCT 41.7 % (37.2-46.3); HGB 14.2 g/dL (12.0-15.0); MCH 31.4 pg (27.0-32.0); MCHC 34.1 g/dL (32.0-37.0); MCV 92.3 fL (80.0-97.0); Platelet Count 332 10*3/uL (140-440); RBC 4.52 10*6/uL (4.10-5.20); RDW 12.9 % (11.5-14.5); WBC 12.67 10*3/uL (4.50-10.00)
[2025-03-19 10:37] LABS: African American GFR (CKD) >90 (>60 ml/min/1.73 sqM); Anion Gap 8 mmol/L; Blood Urea Nitrogen 8 mg/dL (7-17); Calcium 9.3 mg/dL (8.4-10.2); Carbon Dioxide 27 mmol/L (22-30); Chloride 103 mmol/L (98-107); Glucose 120 mg/dL (74-99); Non-African American GFR(CKD) >90 (>60 ml/min/1.73 sqM); Potassium 3.8 mmol/L (3.5-5.1); Sodium 138 mmol/L (137-145)
[2025-03-19] MEDS: amLODIPine 5 MG TAB PO SCH (10:42)
[2025-03-19] MEDS ORDERED: DEXTROSE 50% SYRINGE 50 ML IVP PRN ×2 (10:57)
[2025-03-19 11:38] LABS: Creatine Kinase 158.0 U/L (30-135)
[2025-03-19 12:08] LABS: Glucose,Whole Blood 102 mg/dL (70-110)
--- NOTE | 2025-03-19 12:41 | P.HPIM ---
History of Present Illness H&P Date: 03/19/25 Chief Complaint: Recent fall, ongoing weakness This is a 74-year-old female brought into the ER via EMS secondary to ongoing, progressive weakness. Patient reports she sustained a fall on 03/13/2025; slipped and hit her head on the bedside stand, laid on floor for 12 hours before being discovered, without syncope, chest pain, palpitations or shortness of breath. Evaluated in the ER with CT head cervical spine CT at that time reporting no acute intracranial process, nonspecific white matter changes likely secondary to chronic small vessel ischemic disease, no evidence of cervical spine fracture, moderate multilevel degenerative disc disease, right posterior and left frontal scalp edema. Patient was discharged home. Patient returned to her friend's house as she developed progressive weakness and unable to take care of herself,over the last 5 days. Reports sacral and decubitus pain accompanied by fluctuating lower back pain radiating from [id number].Reports prior to the fall she ambulated independently with the aid of a cane. Upon assessment, noted patient has rolling wrist tremors-endorses worsening over the last 6 months. Staff reports patient is a heavy 2+ assistance. Patient was able to stand up at bedside with a walker, requiring assistance getting out of bed with support while standing up. Extremely weak, shaky. attempted a few steps-shuffling gait noted. Denies chest pain, palpitations or shortness of breath. Denies nausea vomiting or diarrhea. Denies abdominal pain .reports last bowel movement was yesterday. Hypertensive, IV fluids discontinued as patient's diet intake 100%. Afebrile with WBC of 13.51 on admission, UA reported turbid appearance with positive leukocytes esterase .chest x-ray reported no acute cardiopulmonary dise ase/process .anterior wedging of the upper thoracic spine with an increased thoracic kyphosis .antibiotics of ceftriaxone and azithromycin initiated in the ER. WBC trending down to 12.67. Electrolytes and renal function stable. Sugars controlled. Alk phos mildly 132. Review of Systems ROS Statement: Those systems with pertinent positive or pertinent negative responses have been documented in the HPI. ROS Other: All systems not noted in ROS Statement are negative. Past Medical History Past Medical History: GERD/Reflux, Hyperlipidemia, Osteoarthritis (OA), Thyroid Disorder Additional Past Medical History / Comment(s): one kidney stone in early 30s and one in early 20s History of Any Multi-Drug Resistant Organisms: None Reported Past Surgical History: Tonsillectomy Additional Past Surgical History / Comment(s): cataracts bilat Past Anesthesia/Blood Transfusion Reactions: No Reported Reaction Smoking Status: Never smoker Medications and Allergies Home Medications Medication Instructions Recorded Confirmed Type Atorvastatin [Lipitor] 20 mg PO DAILY 03/13/25 03/18/25 History Lansoprazole [Prevacid 24Hr OTC] 15 mg PO BID 03/13/25 03/18/25 History Levothyroxine Sodium [Synthroid] 50 mcg PO DAILY 03/13/25 03/18/25 History Allergies Allergy/AdvReac Type Severity Reaction Status Date / Time No Known Allergies Allergy Verified 03/18/25 20:04 Physical Exam Vitals: Vital Signs Temp Pulse Pulse Resp BP BP BP 03/19/25 07:00 98.3 F 79 15 171/95 03/19/25 06:48 144/86 03/19/25 00:15 98.6 F 84 17 170/94 03/18/25 23:48 76 18 168/94 03/18/25 20:36 85 20 160/95 03/18/25 18:00 90 18 157/93 03/18/25 14:27 98.4 F 85 16 140/95 Pulse Ox 03/19/25 07:00 98 03/19/25 06:48 03/19/25 00:15 99 03/18/25 23:48 97 03/18/25 20:36 97 03/18/25 18:00 96 03/18/25 14:27 100 Intake and Output 03/18/25 03/19/25 03/19/25 22:59 06:59 14:59 Other: Voiding Method Bedside Commode # Voids 1 0 Weight 53.524 kg VS: Reviewed GEN: Elderly unkept female, poor dentition, positive gingivitis, long fingernails, left great toenail excessively long. Heent:peerla ,eomi, no nystagmus ,poor dental hygene, fine yellow bruising on the left cheek Heart: S1-S2, regular, no murmur Lung: Kyphosis ,ctab with bilateral bases diminished Abd:soft, pos Bs, nontender, no mass Ext no edema, no cyanosis, no calf pain Neuro: Alert and oriented to person and place, pleasant, cooperative, generalized weakness-rolling wrist tremors, shuffling gait; Skin: Warm and dry, no rashes or skin breakdown noted, multiple bruising's on extremities Results CBC & Chem 7: 03/20/25 06:13 03/20/25 06:13 Labs: Abnormal Lab Results - Last 24 Hours (Table) 03/18/25 03/18/25 03/18/25 Range/Units 15:27 16:35 17:30 WBC 13.51 H (4.50-10.00) 10*3/uL Hgb 15.2 H (12.0-15.0) g/dL Immature Gran # 0.07 H (0.00-0.04) 10*3/uL Neutrophils # 10.15 H (1.80-7.70) 10*3/uL Carbon Dioxide 31 H (22-30) mmol/L Glucose 115 H (74-99) mg/dL Alkaline Phosphatase 132 H (38-126) U/L Urine Appearance Turbid H (Clear) Ur Leukocyte Esterase Small H (Negative) Urine WBC 8 H (0-5) /hpf Amorphous Sediment Rare H (None) /hpf Urine Mucus Rare H (None) /hpf Thrombosis Risk Factor Assmnt - Choose All That Apply Any of the Below Risk Factors Present?: No Other Risk Factors: Yes Each Risk Factor Represents 2 Points: Age 61-74 years Other congenital or acquired thrombophilia - If yes, enter type in comment: No Thrombosis Risk Factor Assessment Total Risk Factor Score: 2 Thrombosis Risk Factor Assessment Level: Low Risk Assessment and Plan Assessment: Myositis,proximal Rolling wrist tremors, shuffling gait, suspect Parkinson's disease Gingivitis, chronic with poor dentition Leukocytosis secondary to possible acute UTI, turbid with leukocyte esterase Recent fall 03/13/25 with reported downtime on floor of 12 hours,. sacral, coccyx and fluctuating lower back pain Moderate multilevel degenerative disc disease reported per prior CT Elevated alk phos Hypertension Hyperlipidemia Gait dysfunction, reports used a cane prior to fall Osteoarthritis Hypothyroidism Gastroesophageal reflux disease Constipation Plan: Continue on current medication regime ,monitoring and symptomatic treatment. Maintain antibiotics, urine culture-add onto urine collected in the ER, repeat labs ordered along with ESR, CRP and CK. Neurology and orthopedic consult initiated. IV steroids ordered for myositis. Tight glycemic control with NovoLog insulin sliding scale. Hypertensive, IV fluids discontinued, repeat vital signs to follow. Specialty mattress ordered-along with offloading boots-patient at high risk for skin breakdown, requires assistance with repositioning. MiraLAX daily for constipation. Extensively long left great toenail, will need to be seen by podiatry outpatient. Fingernails will need to be addressed outpatient as well. Patient needs to follow-up with a dentist outpatient-chlorhexidine gluconate mouthwash ordered for gingivitis. PT/OT consults in place-patient will need subacute rehab at discharge; significant weakness, requires assistance with repositioning, getting up out of bed, a mbulating with a walker with assistance. Prognosis guarded given multiple complex medical issues. The impression and plan of care has been dictated as directed. : I performed a history and examination of this patient, discussed the same with the dictator. I agree with the dictator's note ,documented as a scribe. Any additional findings or plans will be noted.
[2025-03-19] MEDS: INSULIN LISPRO (HumaLOG) 100 UNIT/ML 10 mL VL SQ SCH (12:45)
[2025-03-19] MEDS: methylPREDNISolone SOD SUCCI 125 MG/2 ML VIAL IV SCH (12:54)
[2025-03-19] MEDS: POTASSIUM CHLORIDE ER 20 MEQ TAB.ER PO STA (12:54)
[2025-03-19] MEDS: ONDANSETRON 4 MG/2 ML VIAL IVP PRN (13:25)
[2025-03-19 14:48] LABS: Glucose,Whole Blood 128 mg/dL (70-110)
--- NOTE | 2025-03-19 15:18 | CT ---
EXAMINATION TYPE: CODE STROKE: CT brain wo contr CT DLP: 1018.7 mGycm, Automated exposure control for dose reduction was used. DATE OF EXAM: 03/19/2025 3:10 PM COMPARISON: CT brain C-spine 03/13/2025, 07/18/2022 CLINICAL INDICATION:Female, 74 years old with history of Acute speech difficulty, dysphasia TECHNIQUE: Brain: Multiple axial CT images of the brain were obtained without IV contrast. . Coronal and sagitta l reformats reviewed. FINDINGS: Brain: Extra-axial spaces: No abnormal extra-axial fluid collections. Ventricular system: Dilatation in proportion to cerebral atrophy. Cerebral parenchyma: Cerebral atrophy. No acute intraparenchymal hemorrhage or mass effect. The lobo -white junction is well differentiated. Scattered hypoattenuating areas are seen within the periventr icular white matter. Cerebellum: Unremarkable. Mass effect: No evidence of midline shift. Intracranial vasculature: unremarkable Soft tissues: Small right vertex scalp hematoma. Calvarium/osseous structures: No depressed skull fracture. Paranasal sinuses and mastoid air cells: Clear Visualized orbits: Bilateral aphakia IMPRESSION: 1. No acute intracranial process. 2. Nonspecific white matter changes, likely secondary to chronic small vessel ischemic disease. 3. Small right vertex scalp hematoma. [facility], , 03/19/2025 3:16 PM
--- NOTE | 2025-03-19 15:55 | CT ---
EXAMINATION TYPE: CODE STROKE: CTA head neck CT DLP: 280 mGycm, Automated exposure control for dose reduction was used. DATE OF EXAM: 03/19/2025 3:47 PM COMPARISON: CT brain 03/19/2025. CLINICAL INDICATION:Female, 74 years old with history of Acute speech difficulty; PHH, code stroke TECHNIQUE: Axially acquired helical CT angiogram of the head and neck was obtained with contrast util izing 75 cc of Isovue-370 administered intravenously. Axial images are supplemented with 3D reconstru ctions which were post-processed at an independent workstation. NASCET criteria used. MIP imaging performed on a separate workstation and submitted for review. FINDINGS: CTA HEAD: No evidence of acute intracranial hemorrhage, mass effect, or midline shift. The ventricles, sulci, a nd cisterns are unremarkable. The visualized portions of the internal carotid arteries, middle cerebral arteries, anterior cerebral arteries, and posterior cerebral arteries are patent. The basilar and vertebral arteries are patent. CTA NECK: Right Carotid System: The common carotid artery and external carotid artery are patent. The carotid bifurcation demonstrate s no evidence of hemodynamically significant stenosis. Mild to moderate calcified plaque within the p roximal internal carotid artery without significant stenosis. The remaining portions of the internal carotid artery demonstrate normal size without significant narrowing. Left Carotid System: The common carotid artery and external carotid artery are patent. The carotid bifurcation demonstrate s no evidence of hemodynamically significant stenosis. Minimal calcified plaque within the proximal i nternal carotid artery without significant stenosis. The remaining portions of the internal carotid a rtery demonstrate normal size without significant narrowing. Vertebral arteries are patent without evidence hemodynamically significant stenosis. There is a three-vessel aortic arch. The origins of the great vessels are patent. No evidence of hemo dynamically significant stenosis. IMPRESSION: 1. No evidence of dissection of the cervical internal carotid arteries or vertebral arteries or any e vidence of significant stenosis at the carotid bifurcations. 2. No evidence of high-grade stenosis or intracranial aneurysm. [facility], , 03/19/2025 3:53 PM
[2025-03-19] MEDS: CHLORHEXIDINE GLUCONATE 15 ML CUP MUCOUS MEM SCH (15:57)
[2025-03-19] MEDS: TICAGRELOR 90 MG TAB PO STA (16:14)
[2025-03-19] MEDS: ASPIRIN 325 MG TAB PO STA (16:14)
[2025-03-19 16:41] LABS: Glucose,Whole Blood 135 mg/dL (70-110)
[2025-03-19 20:03] LABS: Glucose,Whole Blood 160 mg/dL (70-110)
--- NOTE | 2025-03-19 20:25 | P.CNNES ---
History of Present Illness Consult date: 03/19/25 Requesting physician: Adina Leroy Reason for Consult: myositism rolling wrist tremors, shuffle, weakness History of Present Illness: Patient is a 74-year-old right-handed female came to the hospital yesterday at 2:25 PM for weakness. She suffered from a fall on 03/13/2025, did not break any bone, but was not able to get by herself up from the floor for 14 hours. Patient has been feeling more stiff, cannot walk since that fall, therefore came to the hospital. Vital signs on arrival blood pressure 140/95, pulse rate 85 temperature 98.4. Blood test showed WBC 13.51, platelets 352 and normal hemoglobin. ESR 8. Basic metabolic panel is normal hepatic panel normal. CK is 158, CRP 1.3. UA negative. Hemoglobin A1c 5.8. EKG showed sinus rhythm. Chest x-ray showed no acute cardiopulmonary process. X-ray of the sacrum and coccyx showed no fracture. There is some limitation due to fecal retention on the frontal projection. Patient developed acute neurological change with aphasia, confusion and weakness at 2:39 PM. Last known well was 1:25 PM. Patient's vitals at that time was blood pressure 182/99, pulse rate 89 respirations 16 saturation 98%. Blood glucose was 128. Stroke code was activated. Her NIH stroke scale was reported as 10. ICU team discussed case with neurointervention, and patient was considered not a candidate for TNK. As per nursing report "[id number] Cecilia aj entered room patient having difficulty communicating. Notified myself. Dr Rojas on floor and entered room to assess patient. CTA ordered. Code Stroke called. last known well 1325 when zofran was given for nausea. patient reports nausea improved. but having difficulty naming objects and putting sentences together. CTA obtained. NIH of 7 then 10 patient transfered to [facility]. patient refusing friend to be notified patient does not have any listed family. patient, chart and medications transported with patient. report given at bedside to Dennis ISLAS" I came over to see the patient, patient was having some expressive speech difficulty. She was able to name some objects but not the others. Her speech was clear but was limited because of expressive dysphasia. Patient was sent for stat CT head and CTA of head and neck. Patient was started on Brilinta with loading dose of 180 mg and aspirin 325 mg with subsequent dosing of Brilinta 90 mg twice daily and aspirin 81 mg daily. CTA did not reveal any large vessel occlusion. I subsequently came to see the patient on 3 N., and patient appears quite stable. Patient having slight paraphasic errors otherwise talking well in examination appears fairly stable. Patient states that she has been having shuffling gait for last 5 to 6 months, as well as tremors at rest. She walks with a cane. She lives by herself, has no children, has 1 stepsister and many friends. She believes that she cannot live by herself at this point. Home medications include levothyroxine, Lipitor 20 mg and Prevacid. Patient does not take any antiplatelet medication at home. Review of Systems All pertinent positive and negative review of systems mentioned in the HPI, otherwise unremarkable. Past Medical History Past Medical History: GERD/Reflux, Hyperlipidemia, Osteoarthritis (OA), Thyroid Disorder Additional Past Medical History / Comment(s): one kidney stone in early 30s and one in early 20s History of Any Multi-Drug Resistant Organisms: None Reported Past Surgical History: Tonsillectomy Additional Past Surgical History / Comment(s): cataracts bilat Past Anesthesia/Blood Transfusion Reactions: No Reported Reaction Smoking Status: Never smoker Medications and Allergies Home Medications Medication Instructions Recorded Confirmed Type Atorvastatin [Lipitor] 20 mg PO DAILY 03/13/25 03/18/25 History Lansoprazole [Prevacid 24Hr OTC] 15 mg PO BID 03/13/25 03/18/25 History Levothyroxine Sodium [Synthroid] 50 mcg PO DAILY 03/13/25 03/18/25 History Allergies Allergy/AdvReac Type Severity Reaction Status Date / Time No Known Allergies Allergy Verified 03/18/25 20:04 Physical Examination - Vital Signs Vital Signs: Vital Signs Temp Pulse Pulse Resp BP BP BP 03/19/25 16:10 99.2 F 96 17 169/99 03/19/25 14:40 98 F 89 16 182/99 03/19/25 07:00 98.3 F 79 15 171/95 03/19/25 06:48 144/86 03/19/25 00:15 98.6 F 84 17 170/94 03/18/25 23:48 76 18 168/94 03/18/25 20:36 85 20 160/95 03/18/25 18:00 90 18 157/93 Pulse Ox 03/19/25 16:10 97 03/19/25 14:40 98 03/19/25 07:00 98 03/19/25 06:48 03/19/25 00:15 99 03/18/25 23:48 97 03/18/25 20:36 97 03/18/25 18:00 96 Intake and Output 03/19/25 03/19/25 03/19/25 06:59 14:59 22:59 Intake Total 120 Balance 120 Intake: Oral 120 Other: Voiding Method Bedside Commode External Catheter # Voids 0 Weight 53.524 kg Patient is an elderly female, very pleasant, in no acute distress. Patient is alert awake oriented to time place and person. She knows it is February, but believes the year is 2043 and then said his 2044. Patient sometimes sees completely gibberish words like "Maryamty" for February. She states it is Sunday (actually ) she knows she is in [facility] in [facility] and name of the current president Oksana, who calls "keke dominguez". Speech and language functions are normal. Patient can name object presented except the earlobe, and she has slight difficulty with repetition as well. Required multiple attempts, even then not able to say all correctly. She is otherwise fluent, able to express herself very well, with no dysarthria. Attention, concentration and fund of knowledge is adequate. Detailed cognitive function testing deferred. On cranial nerve examination, pupils are equal, round and reacting to light, visual ding are full on confrontation, with no neglect on double simultaneous stimulation. Extraocular muscles are intact with no nystagmus. Face is symmetric, tongue protrudes to the midline. Palatal elevation and sensation normal, hearing and shoulder shrug normal, facial sensation normal. On muscle strength testing, there is no pronator drift and the strength is normal in arms and legs distally and proximally. No leg drift. Deep tendon reflexes are symmetric 1+ all over send plantars are flat. Sensory to touch is equal in the arms and legs. However she neglects left leg with double simultaneous stimulation. Cerebellar function showed no ataxia for [id number] testing. No dysdiadochokinesia. No ataxia for [id number] testing on either side. Tone is increased mild to moderately bilaterally with cogwheeling and bulk of muscles normal. Patient has tremors at rest of both arms, left more than right. Patie nt appears slightly bradykinetic. Gait deferred.. On general examination, there is no carotid bruit or murmur, S1-S2 audible. Chest is clear on consultation. Abdomen is soft nontender. No organomegaly, bowel sounds present. Peripheral pulses are present. No peripheral edema. Results - Laboratory Findings CBC and BMP: 03/19/25 10:09 03/19/25 10:09 Abnormal Lab Findings: Abnormal Labs 03/18/25 03/18/25 03/18/25 15:27 16:35 17:30 WBC 13.51 H Hgb 15.2 H Immature Gran # 0.07 H Neutrophils # 10.15 H Carbon Dioxide 31 H Creatinine Glucose 115 H POC Glucose (mg/dL) Alkaline Phosphatase 132 H Creatine Kinase C-Reactive Protein Urine Appearance Turbid H Ur Leukocyte Esterase Small H Urine WBC 8 H Amorphous Sediment Rare H Urine Mucus Rare H 03/19/25 03/19/25 03/19/25 10:09 10:09 10:09 WBC 12.67 H Hgb Immature Gran # Neutrophils # Carbon Dioxide Creatinine 0.49 L Glucose 120 H POC Glucose (mg/dL) Alkaline Phosphatase Creatine Kinase 158 H C-Reactive Protein 1.3 H Urine Appearance Ur Leukocyte Esterase Urine WBC Amorphous Sediment Urine Mucus 03/19/25 03/19/25 14:45 16:39 WBC Hgb Immature Gran # Neutrophils # Carbon Dioxide Creatinine Glucose POC Glucose (mg/dL) 128 H 135 H Alkaline Phosphatase Creatine Kinase C-Reactive Protein Urine Appearance Ur Leukocyte Esterase Urine WBC Amorphous Sediment Urine Mucus Assessment and Plan Assessment: * Probable acute ischemic stroke manifesting with aphasia. Her initial NIH stroke scale was reported as 7, then went up to 10. Now it is down to 1-2. Patient was considered not a candidate for TNK because of recent falls, and rapid clinical improvement. No LVO seen. * Hyperlipidemia * Frequent falls * Probable Parkinson's disease * Arthritis Plan: * Patient was not a candidate for TN K. Patient is doing well. Her NIH stroke scale is down to 1 (left leg neglect on double simultaneous stimulation). * Patient has been started on Brilinta 180 mg stat and then 90 mg twice daily. Also received aspirin 325 mg stat and then 81 mg daily. * MRI of the brain * 2D echo with bubble study, rule out PFO. * CTA of head and neck revealed no evidence of dissection of the cervical internal carotid arteries or vertebral arteries or any evidence of significant stenosis at the carotid bifurcations. No evidence of high-grade stenosis or intracranial aneurysm. * Hemoglobin A1c * Fasting lipid panel * Telemetry monitoring * B12, folate * Patient on Protonix 40 mg daily for gastric ulcer prophylaxis. * Patient on azithromycin for possible UTI. * DVT prophylaxis: Heparin 5000 units SQ twice daily. * Patient has developed Parkinson's disease. We will start Sinemet 25/100 twice daily. Hopefully will help with rigidity, tremors and balance. Possible side effects were discussed. * Neurology will follow. Thank you for the consult. Time with Patient: Greater than 30
[2025-03-19] MEDS: AZITHROMYCIN 500 MG TAB PO SCH (20:39)
[2025-03-19] MEDS: CARBIDOPA-LEVODOPA 25-100 MG 1 EACH TAB PO SCH (20:40)
[2025-03-19] MEDS: traMADol 50 MG TAB PO PRN (20:40)
[2025-03-19] MEDS ORDERED: FAMOTIDINE 20 MG TAB PO SCH (21:00)
[2025-03-20 04:37] LABS: Vitamin B12 247.0 pg/mL (200.0-944.0)
[2025-03-20 06:14] LABS: Glucose,Whole Blood 130 mg/dL (70-110)
[2025-03-20 06:53] LABS: Basophils # (A) 0.03 10*3/uL (0.00-0.10); Basophils % (A) 0.2 %; Eosinophils # (A) 0.00 10*3/uL (0.04-0.35); Eosinophils % (A) 0.0 %; HCT 43.3 % (37.2-46.3); HGB 14.5 g/dL (12.0-15.0); Lymphocytes # (A) 1.29 10*3/uL (0.90-5.00); Lymphocytes % (A) 8.7 %; MCH 30.7 pg (27.0-32.0); MCHC 33.5 g/dL (32.0-37.0); MCV 91.7 fL (80.0-97.0); Monocytes # (A) 0.10 10*3/uL (0.20-1.00); Monocytes % (A) 0.7 %; Neutrophils # (A) 13.25 10*3/uL (1.80-7.70); Neutrophils % (A) 89.3 %; Platelet Count 372 10*3/uL (140-440); RBC 4.72 10*6/uL (4.10-5.20); RDW 12.7 % (11.5-14.5); WBC 14.83 10*3/uL (4.50-10.00)
[2025-03-20 07:09] LABS: African American GFR (CKD) >90 (>60 ml/min/1.73 sqM); Anion Gap 12 mmol/L; Blood Urea Nitrogen 10 mg/dL (7-17); Calcium 9.7 mg/dL (8.4-10.2); Carbon Dioxide 22 mmol/L (22-30); Chloride 102 mmol/L (98-107); Glucose 137 mg/dL (74-99); Non-African American GFR(CKD) >90 (>60 ml/min/1.73 sqM); Potassium 4.3 mmol/L (3.5-5.1); Sodium 136 mmol/L (137-145)
[2025-03-20] MEDS: ASPIRIN 81 MG PO SCH (09:15)
[2025-03-20] MEDS: TICAGRELOR 90 MG TAB PO SCH (09:15)
--- NOTE | 2025-03-20 10:43 | MR ---
EXAMINATION TYPE: MR brain wo con DATE OF EXAM: 03/20/2025 10:08 AM COMPARISON: None. CLINICAL INDICATION: Female, 74 years old with history of Neuro deficit, acute, stroke suspected, Ce ro deficits, code stroke 03/19/2025 TECHNIQUE: Multiplanar, multiecho imaging on a 3.0 Katie magnet is performed through the brain. Stud y is performed within 24 hours of arrival to the hospital.Multiplanar, multiecho imaging on a 3.0 Tiesha la magnet is performed through the knee. IV Contrast: mL (None, if empty) FINDINGS: The craniovertebral junction is normal. The pituitary is normal. Diffusion-weighted imaging is performed. No abnormal hyperintensity is present to suggest an acute i ntracranial infarct or acute ischemic change. There are a few scattered punctate areas of hyperintensity on T2 and Inversion Recovery weighted sequ ences which are non-specific but can be related to microvascular ischemic changes. Ventricles and sulci are appropriate for the patient age. IMPRESSION: 1. No suspicious acute intracranial process. 2. Mild chronic appearing white matter ischemic-type changes. [facility], , 03/20/2025 10:40 AM
--- NOTE | 2025-03-20 11:04 | P.PN ---
Subjective Progress Note Date: 03/20/25 H&P Date: 03/19/25 Chief Complaint: Recent fall, ongoing weakness This is a 74-year-old female brought into the ER via EMS secondary to ongoing, progressive weakness. Patient reports she sustained a fall on 03/13/2025; slipped and hit her head on the bedside stand, laid on floor for 12 hours before being discovered, without syncope, chest pain, palpitations or shortness of breath. Evaluated in the ER with CT head cervical spine CT at that time reporting no acute intracranial process, nonspecific white matter changes likely secondary to chronic small vessel ischemic disease, no evidence of cervical spine fracture, moderate multilevel degenerative disc disease, right posterior and left frontal scalp edema. Patient was discharged home. Patient returned to her friend's house as she developed progressive weakness and unable to take care of herself,over the last 5 days. Reports sacral and decubitus pain accompanied by fluctuating lower back pain radiating from [id number].Reports prior to the fall she ambulated independently with the aid of a cane. Upon assessment, noted patient has rolling wrist tremors-endorses worsening over the last 6 months. Staff reports patient is a heavy 2+ assistance. Patient was able to stand up at bedside with a walker, requiring assistance getting out of bed with support while standing up. Extremely weak, shaky. attempted a few steps-shuffling gait noted. Denies chest pain, palpitations or shortness of breath. Denies nausea vomiting or diarrhea. Denies abdominal pain .reports last bowel movement was yesterday. Hypertensive, IV fluids discontinued as patient's diet intake 100%. Afebrile with WBC of 13.51 on admission, UA reported turbid appearance with positive leukocytes esterase .chest x-ray reported no acute cardiopulmonary disease/process .anterior wedging of the upper thoracic spine with an increased thoracic kyphosis .antibiotics of ceftriaxone and azithromycin initiated in the ER. WBC trending down to 12.67. Electrolytes and renal function stable. Sugars controlled. Alk phos mildly 132. 03/20/2025 yesterday afternoon patient developed some neurochanges with expressive aphasia, increased weakness, confusion after receiving Solu-Medrol IV push, Zofran and potassium. initial NIH stroke scale reported as 7, proceeded up to 10 , decreased quickly to 1-2. Due to rapid improvement and recent fall ,patient was not a candidate for TNK. evaluated by neurology. Received aspirin and Brilinta , completed brain CT and CTA of head and neck.Brain CT reported no acute intracranial process. CTA head and neck reported no evidence of acute intracranial hemorrhage, mass effect or midline shift. Ventricles sulci and cisterns unremarkable. Visualized portions of the internal carotid arteries, middle cerebral arteries anterior cerebral arteries and posterior cerebral ar teries patent, basilar and vertebral arteries patent. No evidence of dissection of the cervical internal carotid arteries or vertebral arteries or any evidence of significant stenosis at the carotid bifurcations, no evidence of high-grade stenosis or intracranial aneurysm. Brain MRI , echo pending. Sinemet initiated for Parkinson's as per neurology. significant clinical improvement this morning, no aphasia noted, tremors lessened. Hemoglobin A1c 5.8. Continues on IV Solu- Medrol, blood sugars controlled.. CK1 58, CRP 1.3, ESR 8. Afebrile, WBC 14.83. Evaluated by orthopedic surgery, no acute fractures per their review of imaging but may have a nondisplaced coccyx fracture-recommending padded cushion for sitting, Objective - Vital Signs Vital signs: Vital Signs Temp 98.2 F 03/20/25 08:00 Pulse 87 03/20/25 08:00 Resp 16 03/20/25 08:00 BP 147/81 03/20/25 08:00 Pulse Ox 100 03/20/25 08:00 FiO2 Intake & Output 03/19/25 03/20/25 03/20/25 18:59 06:59 18:59 Intake Total 300 240 Output Total 160 200 Balance 300 -160 40 Weight 46 kg Intake: Oral 300 240 Output: Urine 160 200 Other: Voiding Method External Catheter External Catheter External Catheter - Exam VS: Reviewed GEN: Alert and oriented x 2, sitting up in chair, no acute distress Heent:peerla ,eomi, poor dental hygene, fine yellow bruising on the left cheek Heart: S1-S2, regular, no murmur Lung: Kyphosis ,ctab with bilateral bases diminished Abd:soft, pos Bs, nontender, no mass Ext no edema, no cyanosis, no calf pain Neuro: Cranial nerves II through XII grossly intact. Decreased tremors. Skin: Warm and dry, no rashes or skin breakdown noted, multiple bruising's on extremities - Labs CBC & Chem 7: 03/20/25 06:13 03/20/25 06:13 Labs: Abnormal Lab Results - Last 24 Hours (Table) 03/19/25 03/19/25 03/19/25 Range/Units 10:09 14:45 16:39 WBC (4.50-10.00) 10*3/uL Immature Gran # (0.00-0.04) 10*3/uL Neutrophils # (1.80-7.70) 10*3/uL Monocytes # (0.20-1.00) 10*3/uL Eosinophils # (0.04-0.35) 10*3/uL Sodium (137-145) mmol/L Creatinine (0.52-1.04) mg/dL Glucose (74-99) mg/dL POC Glucose (mg/dL) 128 H 135 H (70-110) mg/dL Creatine Kinase 158 H (30-135) U/L C-Reactive Protein 1.3 H (<1.0) mg/dL 03/19/25 03/20/25 03/20/25 Range/Units 20:01 06:12 06:13 WBC (4.50-10.00) 10*3/uL Immature Gran # (0.00-0.04) 10*3/uL Neutrophils # (1.80-7.70) 10*3/uL Monocytes # (0.20-1.00) 10*3/uL Eosinophils # (0.04-0.35) 10*3/uL Sodium 136 L (137-145) mmol/L Creatinine 0.49 L (0.52-1.04) mg/dL Glucose 137 H (74-99) mg/dL POC Glucose (mg/dL) 160 H 130 H (70-110) mg/dL Creatine Kinase (30-135) U/L C-Reactive Protein (<1.0) mg/dL 03/20/25 Range/Units 06:13 WBC 14.83 H (4.50-10.00) 10*3/uL Immature Gran # 0.16 H (0.00-0.04) 10*3/uL Neutrophils # 13.25 H (1.80-7.70) 10*3/uL Monocytes # 0.10 L (0.20-1.00) 10*3/uL Eosinophils # 0.00 L (0.04-0.35) 10*3/uL Sodium (137-145) mmol/L Creatinine (0.52-1.04) mg/dL Glucose (74-99) mg/dL POC Glucose (mg/dL) (70-110) mg/dL Creatine Kinase (30-135) U/L C-Reactive Protein (<1.0) mg/dL Assessment and Plan Assessment: Aphasia, resolved, acute TIA, possible acute CVA, neurowork-up in progress. Myositis,proximal Rolling wrist tremors, cogwheel rigidity ,shuffling gait, probable Parkinson's disease, Sinemet initiated Gingivitis, chronic with poor dentition,chlorhexidine gluconate mouthwash ordered Leukocytosis secondary to possible acute UTI, turbid with leukocyte esterase Recent fall 03/13/25 with prolonged downtime,sacral, coccyx and fluctuating lower back pain. Possible nondisplaced coccyx fracture, evaluated by OA, recommending padded cushion for sitting and follow-up outpatient PRN., Moderate multilevel degenerative disc disease reported per prior CT Elevated alk phos Hypertension Hyperlipidemia Gait dysfunction, reports used a cane prior to fall Osteoarthritis Hypothyroidism Gastroesophageal reflux disease Constipation Plan: Continue on current medication regime ,monitoring and symptomatic treatment. Telemetry monitoring .neurowork-up in progress, MRI and echo pending .maintain antibiotics, urine culture pending. Continue IV steroids with tight glycemic control utilizing NovoLog insulin sliding scale. High risk for skin breakdown due to limited mobility, difficulty repositioning, maintain specialty mattress along with offloading boots. PT/OT. Subacute rehab at discharge. Prognosis guarded given multiple complex medical issues. The impression and plan of care has been dictated as directed. : I performed a history and examination of this patient, discussed the same with the dictator. I agree with the dictator's note ,documented as a scribe. Any additional findings or plans will be noted.
[2025-03-20 11:26] LABS: Glucose,Whole Blood 145 mg/dL (70-110)
--- NOTE | 2025-03-20 12:00 | P.CNOR ---
History of Present Illness - [facility] Consult date: 03/20/25 Consult reason: low back pain History of present illness: This is a 74-year-old female who fell in her home approximately 5 days ago and was unable to get up. She states that she laid on her left side after falling directly on her bottom. She was able to scoot to the linoleum floor but was exhausted and was unable to reach her phone to call for help. She states that she laid there for approximately 14 hours. She was eventually discovered by a friend and was brought to the emergency department. She states she was discharged home that day but had persisting weakness and inability to ambulate. She was brought back to the emergency department and is admitted for further treatment and evaluation. She is currently being evaluated by neurology who have recently diagnosed her with Parkinson's. Today she reports no pain in her neck, back or extremities. Her main complaint is global weakness. Past Medical History Past Medical History: GERD/Reflux, Hyperlipidemia, Osteoarthritis (OA), Thyroid Disorder Additional Past Medical History / Comment(s): one kidney stone in early 30s and one in early 20s History of Any Multi-Drug Resistant Organisms: None Reported Past Surgical History: Tonsillectomy Additional Past Surgical History / Comment(s): cataracts bilat Past Anesthesia/Blood Transfusion Reactions: No Reported Reaction Smoking Status: Never smoker Medications and Allergies Home Medications Medication Instructions Recorded Confirmed Type Atorvastatin [Lipitor] 20 mg PO DAILY 03/13/25 03/18/25 History Lansoprazole [Prevacid 24Hr OTC] 15 mg PO BID 03/13/25 03/18/25 History Levothyroxine Sodium [Synthroid] 50 mcg PO DAILY 03/13/25 03/18/25 History Allergies Allergy/AdvReac Type Severity Reaction Status Date / Time No Known Allergies Allergy Verified 03/18/25 20:04 Physical Examination This is a pleasant 74-year-old female in no acute distress. She is alert and oriented x 3. She is sitting comfortably in a chair at bedside. Exam of the head and neck revealed no obvious deformity. There is some obvious dental decay. She has full cervical spine motion without difficulty or pain. She is nontender over the cervical spinous processes. Nontender over the paraspinal musculature. Exam of the upper extremities reveals full shoulder, elbow, wrist and finger motion bilaterally. Neurovascular status to the upper extremities is intact. There is some weakness with manager garden strength bilaterally. Exam of the thoracic and lumbar spine reveal no obvious deformity. She is nontender with palpation about the thoracic and lumbar spinous processes. Nontender over the sacrum with palpation. Nontender over the sacroiliac joints bilaterally. Exam of the lower extremities reveals no obvious deformity. No pain with hip motion. Full extension and flexion of bilateral hips and knees without pain or difficulty. Full foot and ankle motion bilaterally. Neurovascular status to the lower extremities is intact. Results X-rays of the pelvis sacral and spine reveal age-related degenerative changes and osteopenia. There is no obvious fracture or bony abnormality. - Labs Labs: Abnormal Lab Results - Last 24 Hours (Table) 03/19/25 03/19/25 03/19/25 Range/Units 14:45 16:39 20:01 WBC (4.50-10.00) 10*3/uL Immature Gran # (0.00-0.04) 10*3/uL Neutrophils # (1.80-7.70) 10*3/uL Monocytes # (0.20-1.00) 10*3/uL Eosinophils # (0.04-0.35) 10*3/uL Sodium (137-145) mmol/L Creatinine (0.52-1.04) mg/dL Glucose (74-99) mg/dL POC Glucose (mg/dL) 128 H 135 H 160 H (70-110) mg/dL 03/20/25 03/20/25 03/20/25 Range/Units 06:12 06:13 06:13 WBC 14.83 H (4.50-10.00) 10*3/uL Immature Gran # 0.16 H (0.00-0.04) 10*3/uL Neutrophils # 13.25 H (1.80-7.70) 10*3/uL Monocytes # 0.10 L (0.20-1.00) 10*3/uL Eosinophils # 0.00 L (0.04-0.35) 10*3/uL Sodium 136 L (137-145) mmol/L Creatinine 0.49 L (0.52-1.04) mg/dL Glucose 137 H (74-99) mg/dL POC Glucose (mg/dL) 130 H (70-110) mg/dL 03/20/25 Range/Units 11:25 WBC (4.50-10.00) 10*3/uL Immature Gran # (0.00-0.04) 10*3/uL Neutrophils # (1.80-7.70) 10*3/uL Monocytes # (0.20-1.00) 10*3/uL Eosinophils # (0.04-0.35) 10*3/uL Sodium (137-145) mmol/L Creatinine (0.52-1.04) mg/dL Glucose (74-99) mg/dL POC Glucose (mg/dL) 145 H (70-110) mg/dL H & H 03/18/25 03/19/25 03/20/25 Range/Units 15:27 10:09 06:13 Hgb 15.2 H 14.2 14.5 (12.0-15.0) g/dL Hct 44.2 41.7 43.3 (37.2-46.3) % Result Diagrams: 03/20/25 06:13 03/20/25 06:13 Assessment and Plan Assessment: 1 Global weakness. 2. Status post fall with prolonged downtime. 3. Coccydynia. 4. Parkinson's disease. Plan: The clinical and x-ray findings are discussed with the patient. It is discussed that she does not have any acute fractures on x-ray but she may have a nondisplaced coccyx fracture which is not noted on x-ray. Recommend supportive treatment with padded cushion for sitting. We also discussed the need for physical therapy and strength training rehabilitation. She is instructed to follow-up with our office as needed. Case discussed with provider and I agree with the above history, exam and plan. Aleksey Michelle MD
[2025-03-20] MEDS: FOLIC ACID 1 MG TAB PO SCH (12:09)
--- NOTE | 2025-03-20 15:34 | EEG ---
DATE OF SERVICE: 03/20/2025 ELECTROENCEPHALOGRAM REPORT PREAMBLE: This is a 74-year-old female, who had a recent episode of possible stroke/TIA. Workup came back negative. This study is performed to evaluate for any epileptiform activity. EEG FINDINGS: This is a 21-channel digital EEG recorded with video component, utilizing 10/20 international system with referential and bipolar montages. Background consists of well-developed, moderately well regulated, predominantly 6 to 7 hertz moderate amplitude theta activity seen in bihemispheric region. Background is posterior dominant and does not seem to be clearly reactive to eye opening or closing. Photic driving response was not seen. Frontal intermittent rhythmic delta activity was seen frequently during this study. Different stages of sleep were not seen. No focal or generalized epileptiform activity was seen. IMPRESSION: This is an abnormal EEG due to presence of background slowing of [id number] degree and presence of frontal intermittent rhythmic delta activity. These findings are suggestive of generalized cerebral dysfunction as can be seen with encephalopathy of [id number] degree. No focal, lateralized or epileptiform activity was seen. MMODL / IJN: [id number] / [facility]LANDJoselin
--- NOTE | 2025-03-20 15:38 | P.PN ---
Subjective Progress Note Date: 03/20/25 Patient was seen for a follow-up. Patient is laying comfortably in the bed. Patient states that she is doing better. Her tremors have improved this morning. No new concerns. No nausea. Objective - Vital Signs Vital signs: Vital Signs Temp 98.2 F 03/20/25 08:00 Pulse 87 03/20/25 08:00 Resp 16 03/20/25 08:00 BP 147/81 03/20/25 08:00 Pulse Ox 99 03/20/25 11:30 FiO2 21 03/20/25 11:30 Intake & Output 03/19/25 03/20/25 03/20/25 18:59 06:59 18:59 Intake Total 300 358 Output Total 160 200 Balance 300 -160 158 Weight 46 kg Intake: Oral 300 358 Output: Urine 160 200 Other: Voiding Method External Catheter External Catheter External Catheter - Exam Mental status, speech and language functions are normal. No aphasia. Visual ding are full. Face is symmetric. No pronator drift. Tone is just mildly increased bilaterally, and the resting tremors have much improved as compared to yesterday. She appears less bradykinetic. - Labs CBC & Chem 7: 03/20/25 06:13 03/20/25 06:13 Labs: Abnormal Lab Results - Last 24 Hours (Table) 03/19/25 03/19/25 03/19/25 Range/Units 14:45 16:39 20:01 WBC (4.50-10.00) 10*3/uL Immature Gran # (0.00-0.04) 10*3/uL Neutrophils # (1.80-7.70) 10*3/uL Monocytes # (0.20-1.00) 10*3/uL Eosinophils # (0.04-0.35) 10*3/uL Sodium (137-145) mmol/L Creatinine (0.52-1.04) mg/dL Glucose (74-99) mg/dL POC Glucose (mg/dL) 128 H 135 H 160 H (70-110) mg/dL 03/20/25 03/20/25 03/20/25 Range/Units 06:12 06:13 06:13 WBC 14.83 H (4.50-10.00) 10*3/uL Immature Gran # 0.16 H (0.00-0.04) 10*3/uL Neutrophils # 13.25 H (1.80-7.70) 10*3/uL Monocytes # 0.10 L (0.20-1.00) 10*3/uL Eosinophils # 0.00 L (0.04-0.35) 10*3/uL Sodium 136 L (137-145) mmol/L Creatinine 0.49 L (0.52-1.04) mg/dL Glucose 137 H (74-99) mg/dL POC Glucose (mg/dL) 130 H (70-110) mg/dL 03/20/25 Range/Units 11:25 WBC (4.50-10.00) 10*3/uL Immature Gran # (0.00-0.04) 10*3/uL Neutrophils # (1.80-7.70) 10*3/uL Monocytes # (0.20-1.00) 10*3/uL Eosinophils # (0.04-0.35) 10*3/uL Sodium (137-145) mmol/L Creatinine (0.52-1.04) mg/dL Glucose (74-99) mg/dL POC Glucose (mg/dL) 145 H (70-110) mg/dL Assessment and Plan Assessment: * Possible TIA manifesting with aphasia. Her initial NIH stroke scale was reported as 7, then went up to 10. Now it is down to 0. MRI brain ruled out any acute stroke. * Hyperlipidemia * Frequent falls * Probable Parkinson's disease * Arthritis Plan: * Patient's all deficits have resolved. Her current NIH stroke scale is 0. * Patient has been started on Brilinta 180 mg stat and then 90 mg twice daily. Also received aspirin 325 mg stat and then 81 mg daily. * Recommend continuing Brilinta 90 mg twice daily and aspirin 81 mg daily (DAPT) for 30 days and then stop Brilinta and continue aspirin indefinitely. * MRI of the brain without contrast revealed no suspicious acute intracranial process. Mild chronic appearing white matter ischemic type changes. I personally reviewed MRI, agree with the findings. * 2D echo with bubble study, completed, results pending. * CTA of head and neck revealed no evidence of dissection of the cervical internal carotid arteries or vertebral arteries or any evidence of significant stenosis at the carotid bifurcations. No evidence of high-grade stenosis or intracranial aneurysm. * Hemoglobin A1c 5.8 * Fasting lipid panel still pending. * Telemetry monitoring * B12 247, folate 3.91. Patient to be started on B12 and folate replacement. * EEG was performed, which was abnormal due to background slowing of mild to moderate degree and frontal intermittent rhythmic delta activity. These findi ngs are suggestive of mild to moderate encephalopathy. No epileptiform activity was seen. * Patient on Protonix 40 mg daily for gastric ulcer prophylaxis. * Patient on azithromycin for possible UTI. * DVT prophylaxis: Heparin 5000 units SQ twice daily. * Patient has Parkinson's disease, and started on Sinemet yesterday and she is showing definite clinical improvement with Sinemet 25/100 twice daily. Continue same dose of Sinemet. * PT OT * Recommend follow-up with neurologist outpatient. Dr. Fausto Don to start neurology service from the Sunday morning.
[2025-03-20 15:50] LABS: Cholesterol 131.00 mg/dL (0.00-200.00); HDL Cholesterol 51.10 mg/dL (40.00-60.00); LDL Cholesterol,Calculated 63.7 mg/dL (0.0-131.0); Triglycerides 80.90 mg/dL (0.00-149.00); VLDL Calculation 16.18 mg/dL (5.00-40.00)
[2025-03-20] MEDS: CYANOCOBALAMIN 1,000 MCG/ML 1 ML VIAL IM SCH (16:21)
--- NOTE | 2025-03-20 19:56 | CA ---
Transthoracic Echo Report Name: Betzy Rowe Age: 74 Gender: F : 1950 Exam Date: 03/20/2025 07:36 Exam Location: [facility] Ht (in): 59 Wt (lb): 118 Ordering Physician: Shabbir Rojas MD Attending/Referring Phys: Town Clerk Lucio Koenig RDCS Procedure CPT: Indications: acute stroke Cardiac Hx: Technical Quality: Poor Contrast 1: Agitated Saline Total Dose (mL): Contrast 2: Total Dose (mL): MEASUREMENTS (Male / Female) Normal Values 2D ECHO LV Diastolic Diameter PLAX 3.8 cm 4.2 - 5.9 / 3.9 - 5.3 cm LV Systolic Diameter PLAX 2.7 cm IVS Diastolic Thickness 1.0 cm 0.6 - 1.0 / 0.6 - 0.9 cm LVPW Diastolic Thickness 1.1 cm 0.6 - 1.0 / 0.6 - 0.9 cm LV Relative Wall Thickness 0.6 RV Internal Dim ED PLAX 2.6 cm LVOT Diameter 1.6 cm LA Systolic Diameter LX 2.2 cm 3.0 - 4.0 / 2.7 - 3.8 cm LV Diastolic Volume MOD BP 46.2 cm??? 67 - 155 / 56 - 104 cm??? LV Systolic Volume MOD BP 21.9 cm??? - 58 / 19 - 49 cm??? LV Ejection Fraction MOD BP 52.5 % >= 55 % LV Cardiac Index MOD BP 1373.5 cm???/min???m??? LV Diastolic Volume MOD 4C 47.6 cm??? LV Systolic Volume MOD 4C 19.3 cm??? LV Ejection Fraction MOD 4C 59.4 % LV Cardiac Index MOD 4C 1600.8 cm???/min???m??? LV Diastolic Length 4C 5.9 cm LV Systolic Length 4C 4.8 cm LV Diastolic Volume MOD 2C 45.5 cm??? LV Systolic Volume MOD 2C 23.8 cm??? LV Ejection Fraction MOD 2C 47.6 % LV Cardiac Index MOD 2C 1223.6 cm???/min???m??? LV Diastolic Length 2C 6.0 cm LV Systolic Length 2C 5.1 cm LA Volume 35.6 cm??? 18 - 58 / 22 - 52 cm??? LA Volume Index 23.7 cm???/m??? 16 - 28 cm???/m??? M-MODE Aortic Root Diameter MM 3.1 cm LA Systolic Diameter MM 2.2 cm LA Ao Ratio MM 0.7 MV E Point Septal Separation 0.3 cm AV Cusp Separation MM 1.3 cm DOPPLER AV Peak Velocity 132.6 cm/s AV Peak Gradient 7.0 mmHg AV Mean Velocity 93.3 cm/s AV Mean Gradient 3.9 mmHg AV Velocity Time Integral 27.9 cm LVOT Peak Velocity 97.5 cm/s LVOT Peak Gradient 3.8 mmHg LVOT Velocity Time Integral 16.6 cm LVOT Stroke Volume 33.2 cm??? LVOT Stroke Volume Index 22.6 ml/m??? LVOT Cardiac Index 1879.4 cm???/min???m??? AV Area Cont Eq vti 1.2 cm??? AV Area Cont Eq pk 1.5 cm??? MV Peak Velocity 94.5 cm/s MV Peak Gradient 3.6 mmHg MV Mean Velocity 59.1 cm/s MV Mean Gradient 1.6 mmHg MV Velocity Time Integral 17.6 cm MV Area PHT 3.5 cm??? Mitral E Point Velocity 60.5 cm/s Mitral A Point Velocity 76.7 cm/s Mitral E to A Ratio 0.8 MV Deceleration Time 218.8 ms TR Peak Velocity 191.3 cm/s TR Peak Gradient 14.6 mmHg FINDINGS Left Ventricle Left ventricular ejection fraction is estimated at 50-55 %. Mildly increased posterior wall thickness. Left ventricular cavity size normal. Right Ventricle Normal right ventricular size and function. Right Atrium Normal right atrial size. No right atrial thrombus or mass seen. Negative agitated saline bubble study for right to left shunt. Left Atrium Normal left atrial size. Left atrial size at the upper limits of normal. Mitral Valve No mitral stenosis. Trace mitral regurgitation. Aortic Valve Trileaflet aortic valve. No aortic stenosis. No aortic regurgitation. Thickened aortic valve without stenosis. Tricuspid Valve No tricuspid stenosis. Mild tricuspid regurgitation. Pulmonic Valve Structurally normal pulmonic valve. No pulmonic stenosis. No pulmonic regurgitation. Pericardium Normal pericardium. No pericardial or pleural effusion. Aorta Normal size aortic root and proximal ascending aorta. CONCLUSIONS LVEF 55% Mild concentric LVH. No obvious regional wall motion abnormality Normal RV size and systolic function No evidence of [id number] intracardiac shunting on bubble study Mild tricuspid regurgitation Previewed by: Dr Matias Stroud (Electronically Signed) Final Date: 20 March 2025 19:55
--- NOTE | 2025-03-21 12:11 | P.PN ---
Subjective March 21, 2025: This 74-year-old female who lives alone and has no family was admitted for global generalized weakness. It was determined she had had Parkinson's disease for the past 6 months that had progressively worsened. While neurology was examining her several days ago she had facial weakness and slurred speech. This quickly resolved. CT brain and angiography CT along with MRI failed to show any significant abnormalities. He is currently on Brilinta for 30 days aspirin to continue along with Sinemet. Overall her condition is much improved. She did injured her sacral coccyx with her fall supportive treatment per orthopedics. Neurology is following her. Vital signs today are stable she is afebrile. Labs show slight leukocytosis but ongoing hemoglobin is normal at 14 5 chemistries are essentially normal. Cholesterol also normal. Neurology and orthopedics consults reviewed. Patient denies any chest pain pressure shortness of breath nausea vomiting diarrhea or constipation. Objective - Vital Signs Vital signs: Vital Signs Temp 97.6 F 03/21/25 08:00 Pulse 78 03/21/25 08:00 Resp 16 03/21/25 08:00 BP 116/71 03/21/25 04:00 Pulse Ox 97 03/21/25 08:00 FiO2 21 03/20/25 11:30 Intake & Output 03/20/25 03/21/25 03/21/25 18:59 06:59 18:59 Intake Total 698 240 240 Output Total 200 Balance 498 240 240 Weight 52.5 kg Intake: Oral 698 240 240 Output: Urine 200 Other: Voiding Method Toilet Toilet Toilet Bedside Commode Bedside Commode Bedside Commode # Voids 1 1 - Exam General: The patient is awake and alert, in no distress, and does not appear acutely ill. Neck: The neck is supple, there is no thyromegaly, lymphadenopathy, tenderness or JVD. Cardiovascular: S1S2 is normal, There is a regular rate and rhythm. No murmur, rub or gallop is appreciated. Respiratory: Lungs are clear to auscultation bilaterally, respirations are non-labored, breath sounds are equal. Gastrointestinal: Soft, non-distended, non-tender abdomen without masses or organomegaly noted. There is no rebound or guarding present. Bowel sounds are unremarkable. Musculoskeletal: Normal ROM, no tenderness, There is no pedal edema. There is no calf tenderness or swelling. No cords were appreciated. Neurological: CN II-XII intact, there are no obvious motor or sensory deficits. Coordination appears grossly intact. Speech is normal. Minimal if any tremor noted, this is much improved from previous Skin: Skin is warm and dry and no rashes or lesions are noted. - Labs CBC & Chem 7: 03/20/25 06:13 03/20/25 06:13 Labs: Microbiology - Last 24 Hours (Table) 03/18/25 17:30 Urine Culture - Preliminary Urine,Voided Gram Neg Bacilli Assessment and Plan Plan: TIA: Currently on Brilinta and aspirin, neurology following Newly diagnosed Parkinson's disease: Much improved with Sinemet. Will continue to monitor. Gingivitis, continue Peridex Leukocytosis secondary to possible acute UTI, turbid with leukocyte esterase, antibiotics have finished monitor Recent fall 03/13/25 with prolonged downtime,sacral, coccyx and fluctuating lower back pain: Improved, will improve with physical therapy and time Possible nondisplaced coccyx fracture, orthopedics is seeing her, no significant treatment at this time but supportive care. Moderate multilevel degenerative disc disease reported per prior CT Osteoarthritis: Has pain medication ordered of tramadol for moderate, hydromorphone for severe. Hypothyroidism: Continue levothyroxine Gastroesophageal reflux disease: Continue pantoprazole Constipation: Improved current medications and treatments as ordered, expect ECF transfer on Sunday.
[2025-03-21] MEDS: ACETAMINOPHEN TAB 325 MG TAB PO PRN (12:50)
--- NOTE | 2025-03-21 14:55 | P.PN ---
Subjective Progress Note Date: 03/21/25 I am seeing the patient for the first time. Please refer to Dr. Rojas for further details. It is suspected that patient has TIA since had aphasia and currently is back to baseline. She probably has Parkinson's and started on Sinemet and feels her tremor is better. Objective - Vital Signs Vital signs: Vital Signs Temp 97.6 F 03/21/25 08:00 Pulse 80 03/21/25 12:00 Resp 16 03/21/25 12:00 BP 125/75 03/21/25 12:00 Pulse Ox 98 03/21/25 12:00 FiO2 21 03/20/25 11:30 Intake & Output 03/20/25 03/21/25 03/21/25 18:59 06:59 18:59 Intake Total 698 240 480 Output Total 200 Balance 498 240 480 Weight 52.5 kg Intake: Oral 698 240 480 Output: Urine 200 Other: Voiding Method Toilet Toilet Toilet Bedside Commode Bedside Commode Bedside Commode # Voids 1 1 - Exam General: Laying in bed and is not in acute distress. Neuro: The patient is awake, alert, oriented to self, place and time. Is following commands. No aphasia VFF to confrontation. No facial weakness. No dysarthria. Motor; Is lifting all extremities above gravity equally. Has mild tremor of the left hand. - Labs CBC & Chem 7: 03/20/25 06:13 03/20/25 06:13 Labs: Microbiology - Last 24 Hours (Table) 03/18/25 17:30 Urine Culture - Preliminary Urine,Voided Gram Neg Bacilli Assessment and Plan Assessment: * Possible TIA manifesting with aphasia. Her initial NIH stroke scale was reported as 7, then went up to 10. Now it is down to 0. MRI brain ruled out any acute stroke. * Hyperlipidemia * Frequent falls * Probable Parkinson's disease * Arthritis Plan: * Patient has been started on Brilinta 180 mg stat and then 90 mg twice daily. Also received aspirin 325 mg stat and then 81 mg daily. * Dr. Grimaldo, recommend continuing Brilinta 90 mg twice daily and aspirin 81 mg daily (DAPT) for 30 days and then stop Brilinta and continue aspirin indefinitely. * MRI of the brain without contrast revealed no suspicious acute intracranial process. Mild chronic appearing white matter ischemic type changes. I personally reviewed MRI, agree with the findings. * 2D echo with bubble study, completed, results pending. * CTA of head and neck revealed no evidence of dissection of the cervical development intern al carotid arteries or vertebral arteries or any evidence of significant stenosis at the carotid bifurcations. No evidence of high-grade stenosis or intracranial aneurysm. * Hemoglobin A1c 5.8 * Fasting lipid panel still pending. * Telemetry monitoring * B12 247, folate 3.91. Patient to be started on B12 and folate replacement. * EEG was performed, which was abnormal due to background slowing of mild to moderate degree and frontal intermittent rhythmic delta activity. These findings are suggestive of mild to moderate encephalopathy. No epileptiform activity was seen. * Patient on Protonix 40 mg daily for gastric ulcer prophylaxis. * Patient on azithromycin for possible UTI. * DVT prophylaxis: Heparin 5000 units SQ twice daily. * Patient has Parkinson's disease, and started on Sinemet and she is showing definite clinical improvement with Sinemet 25/100 twice daily. Continue same dose of Sinemet. * PT OT * Recommend follow-up with neurologist outpatient within 2-3 weeks. Otherwise, no additional neurological work-up. Will Sign off. Please reconsult if needed. Time with Patient: Less than 30
--- NOTE | 2025-03-22 10:42 | P.PN ---
Subjective March 21, 2025: This 74-year-old female who lives alone and has no family was admitted for global generalized weakness. It was determined she had had Parkinson's disease for the past 6 months that had progressively worsened. While neurology was examining her several days ago she had facial weakness and slurred speech. This quickly resolved. CT brain and angiography CT along with MRI failed to show any significant abnormalities. He is currently on Brilinta for 30 days aspirin to continue along with Sinemet. Overall her condition is much improved. She did injured her sacral coccyx with her fall supportive treatment per orthopedics. Neurology is following her. Vital signs today are stable she is afebrile. Labs show slight leukocytosis but ongoing hemoglobin is normal at 14 5 chemistries are essentially normal. Cholesterol also normal. Neurology and orthopedics consults reviewed. Patient denies any chest pain pressure shortness of breath nausea vomiting diarrhea or constipation. March 22, 2025: Patient remains on her Sinemet along with Brilinta and aspirin for new onset Parkinson's and TIA. Neurology is following. She is also on B12 folic acid replacement. There is no major complaints today. She will go to [facility] tomorrow Objective - Vital Signs Vital signs: Vital Signs Temp 97.8 F 03/22/25 04:00 Pulse 80 03/22/25 04:00 Resp 17 03/22/25 04:00 BP 147/77 03/22/25 04:00 Pulse Ox 98 03/22/25 04:00 FiO2 21 03/20/25 11:30 Intake & Output 03/21/25 03/22/25 03/22/25 18:59 06:59 18:59 Intake Total 480 200 Balance 480 200 Intake: Oral 480 200 Other: Voiding Method Toilet Bedside Commode # Voids 1 - Exam General: The patient is awake and alert, in no distress, and does not appear acutely ill. Neck: The neck is supple, there is no thyromegaly, lymphadenopathy, tenderness or JVD. Cardiovascular: S1S2 is normal, There is a regular rate and rhythm. No murmur, rub or gallop is appreciated. Respiratory: Lungs are clear to auscultation bilaterally, respirations are non-labored, breath sounds are equal. Gastrointestinal: Soft, non-distended, non-tender abdomen without masses or organomegaly noted. There is no rebound or guarding present. Bowel sounds are unremarkable. Musculoskeletal: Normal ROM, no tenderness, There is no pedal edema. There is no calf tenderness or swelling. No cords were appreciated. Neurological: CN II-XII intact, there are no obvious motor or sensory deficits. Coordination appears grossly intact. Speech is normal. Minimal if any tremor noted, this is much improved from previous Skin: Skin is warm and dry and no rashes or lesions are noted. - Labs CBC & Chem 7: 03/20/25 06:13 03/20/25 06:13 Labs: Microbiology - Last 24 Hours (Table) 03/18/25 17:30 Urine Culture - Final Urine,Voided Proteus mirabilis Assessment and Plan Plan: TIA: Currently on Brilinta and aspirin, neurology following Newly diagnosed Parkinson's disease: Much improved with Sinemet. Will continue to monitor. Gingivitis, continue Peridex Leukocytosis secondary to possible acute UTI, turbid with leukocyte esterase, antibiotics have finished monitor Recent fall 03/13/25 with prolonged downtime,sacral, coccyx and fluctuating lower back pain: Improved, will improve with physical therapy and time Possible nondisplaced coccyx fracture, orthopedics is seeing her, no significant treatment at this time but supportive care. Moderate multilevel degenerative disc disease reported per prior CT Osteoarthritis: Has pain medication ordered of tramadol for moderate, hydromorphone for severe. Hypothyroidism: Continue levothyroxine Gastroesophageal reflux disease: Continue pantoprazole Constipation: Improved current medications and treatments as ordered, expect ECF transfer tomorrow
[2025-03-23 08:08] LABS: Basophils # (A) 0.05 10*3/uL (0.00-0.10); Basophils % (A) 0.4 %; Eosinophils # (A) 0.10 10*3/uL (0.04-0.35); Eosinophils % (A) 0.8 %; HCT 41.2 % (37.2-46.3); HGB 14.1 g/dL (12.0-15.0); Lymphocytes # (A) 2.17 10*3/uL (0.90-5.00); Lymphocytes % (A) 17.2 %; MCH 31.3 pg (27.0-32.0); MCHC 34.2 g/dL (32.0-37.0); MCV 91.4 fL (80.0-97.0); Monocytes # (A) 0.73 10*3/uL (0.20-1.00); Monocytes % (A) 5.8 %; Neutrophils # (A) 9.52 10*3/uL (1.80-7.70); Neutrophils % (A) 75.2 %; Platelet Count 417 10*3/uL (140-440); RBC 4.51 10*6/uL (4.10-5.20); RDW 12.6 % (11.5-14.5); WBC 12.65 10*3/uL (4.50-10.00)
[2025-03-23 08:28] LABS: African American GFR (CKD) >90 (>60 ml/min/1.73 sqM); Anion Gap 9 mmol/L; Blood Urea Nitrogen 6 mg/dL (7-17); Calcium 9.2 mg/dL (8.4-10.2); Carbon Dioxide 25 mmol/L (22-30); Chloride 100 mmol/L (98-107); Glucose 114 mg/dL (74-99); Non-African American GFR(CKD) >90 (>60 ml/min/1.73 sqM); Potassium 3.9 mmol/L (3.5-5.1); Sodium 134 mmol/L (137-145)
[2025-03-23] MEDS: SENNOSIDES-DOCUSATE SODIUM 1 EACH TAB PO SCH (10:01)
[2025-03-23 11:00] VITALS: RESP 16; TEMP 98.1
--- NOTE | 2025-03-23 11:18 | P.DS ---
Providers Date of admission: 03/19/25 10:15 Expected date of discharge: 03/23/25 Attending physician: Tristan Bryant Consults: 03/19/25 09:11 Consult Physician Routine Consulting Provider: Aleksey Michelle Consult Reason/Comments: coccyx and loer back pain post fall Do you want consulting provider notified?: Yes 03/19/25 10:56 Consult Physician Routine Consulting Provider: Shabbir Rojas Consult Reason/Comments: myositism rolling wrist tremors, shuffle, weakness Do you want consulting provider notified?: Yes Primary care physician: [facility] Course: Final Diagnosis: Aphasia, resolved, acute TIA, Myositis,proximal Rolling wrist tremors, cogwheel rigidity ,shuffling gait, newly diagnosed Parkinson's disease, Sinemet initiated with significant improvement Gingivitis, chronic with poor dentition, maintain on chlorhexidine gluconate mouthwash Leukocytosis secondary to acute UTI with Proteus Mirabilis, completed antibiotics Recent fall 03/13/25 with prolonged downtime,sacral, coccyx and fluctuating lower back pain. Improving, continue with PT Possible nondisplaced coccyx fracture, evaluated by OA, recommending supportive care including padded cushion for sitting and follow-up outpatient PRN., Moderate multilevel degenerative disc disease reported per prior CT Elevated alk phos Hypertension Hyperlipidemia Gait dysfunction, reports used a cane prior to fall Osteoarthritis Hypothyroidism Gastroesophageal reflux disease Constipation Hospital course:This is a 74-year-old female brought into the ER via EMS secondary to ongoing, progressive weakness. Patient reports she sustained a fall on 03/13/2025; slipped and hit her head on the bedside stand, laid on floor for 12 hours before being discovered, without syncope, chest pain, palpitations or shortness of breath. Evaluated in the ER with CT head cervical spine CT at that time reporting no acute intracranial process, nonspecific white matter changes likely secondary to chronic small vessel ischemic disease, no evidence of cervical spine fracture, moderate multilevel degenerative disc disease, right posterior and left frontal scalp edema. Patient was discharged home. Patient returned to her friend's house as she developed progressive weakness and unable to take care of herself,over the last 5 days. Reports sacral and decubitus pain accompanied by fluctuating lower back pain radiating from [id number].Reports prior to the fall she ambulated independently with the aid of a cane. Upon assessment, noted patient has rolling wrist tremors-endorses worsening over the last 6 months. Staff reports patient is a heavy 2+ assistance. Patient was able to stand up at bedside with a walker, requiring assistance getting out of bed with support while standing up. Extremely weak, shaky. attempted a few steps-shuffling gait noted. Denies chest pain, palpitations or shortness of breath. Denies nausea vomiting or diarrhea. Denies abdominal pain .reports last bowel movement was yesterday. Hypertensive, IV fluids discontinued as patient's diet intake 100%. Afebrile with WBC of 13.51 on admission, UA reported turbid appearance with positive leukocytes esterase .chest x-ray reported no acute cardiopulmonary disease/process .anterior wedging of the upper thoracic spine with an increased thoracic kyphosis .antibiotics of ceftriaxone and azithromycin initiated in the ER. WBC trending down to 12.67. Electrolytes and renal function stable. Sugars controlled. Alk phos mildly 132. 03/20/2025 yesterday afternoon patient developed some neurochanges with expressive aphasia, increased weakness, confusion after receiving Solu-Medrol IV push, Zofran and potassium. initial NIH stroke scale reported as 7, proceeded up to 10 , decreased quickly to 1-2. Due to rapid improvement and recent fall ,patient was not a candidate for TNK. evaluated by neurology. Received aspirin and Brilinta , completed brain CT and CTA of head and neck.Brain CT reported no acute intracranial process. CTA head and neck reported no evidence of acute intracranial hemorrhage, mass effect or midline shift. Ventricles sulci and cisterns unremarkable. Visualized portions of the internal carotid arteries, middle cerebral arteries anterior cerebral arteries and posterior cerebral arteries patent, basilar and vertebral arteries patent. No evidence of dissection of the cervical internal carotid arteries or vertebral arteries or any evidence of significant stenosis at the carotid bifurcations, no evidence of high-grade stenosis or intracranial aneurysm. Brain MRI , echo pending. Sinemet initiated for Parkinson's as per neurology. significant clinical improvement this morning, no aphasia noted, tremors lessened. Hemoglobin A1c 5.8. Continues on IV Solu-Medrol, blood sugars controlled.. CK1 58, CRP 1.3, ESR 8. Afebrile, WBC 14.83. Evaluated by orthopedic surgery, no acute fractures per their review of imaging but may have a nondisplaced coccyx fractu re-recommending padded cushion for sitting, This is a 74-year-old female brought into the ER via EMS secondary to ongoing, progressive weakness. Patient reports she sustained a fall on 03/13/2025; slipped and hit her head on the bedside stand, laid on floor for 12 hours before being discovered, without syncope, chest pain, palpitations or shortness of breath. Evaluated in the ER with CT head cervical spine CT at that time reporting no acute intracranial process, nonspecific white matter changes likely secondary to chronic small vessel ischemic disease, no evidence of cervical s pine fracture, moderate multilevel degenerative disc disease, right posterior and left frontal scalp edema. Patient was discharged home. Patient returned to her friend's house as she developed progressive weakness and unable to take care of herself,over the last 5 days. Reports sacral and decubitus pain accompanied by fluctuating lower back pain radiating from [id number].Reports prior to the fall she ambulated independently with the aid of a cane. Upon assessment, noted patient has rolling wrist tremors-endorses worsening over the last 6 months. Staff reports patient is a heavy 2+ assistance. Patient was able to stand up at bedside with a walker, requiring assistance getting out of bed with support while standing up. Extremely weak, shaky. attempted a few steps-shuffling gait noted. Denies chest pain, palpitations or shortness of breath. Denies nausea vomiting or diarrhea. Denies abdominal pain .reports last bowel movement was yesterday. Hypertensive, IV fluids discontinued as patient's diet intake 100%. Afebrile with WBC of 13.51 on admission, UA reported turbid appearance with positive leukocytes esterase .chest x-ray reported no acute cardiopulmonary disease/process .anterior wedging of the upper thoracic spine with an increased thoracic kyphosis .antibiotics of ceftriaxone and azithromycin initiated in the ER. WBC trending down to 12.67. Electrolytes and renal function stable. Sugars controlled. Alk phos mildly 132. March 21, 2025: This 74-year-old female who lives alone and has no family was admitted for global generalized weakness. It was determined she had had Parkinson's disease for the past 6 months that had progressively worsened. While neurology was examining her several days ago she had facial weakness and slurred speech. This quickly resolved. CT brain and angiography CT along with MRI failed to show any significant abnormalities. He is currently on Brilinta for 30 days aspirin to continue along with Sinemet. Overall her condition is much improved. She did injured her sacral coccyx with her fall supportive treatment per orthopedics. Neurology is following her. Vital signs today are stable she is afebrile. Labs show slight leukocytosis but ongoing hemoglobin is normal at 14 5 chemistries are essentially normal. Cholesterol also normal. Neurology and orthopedics consults reviewed. Patient denies any chest pain pressure shortness of breath nausea vomiting diarrhea or constipation. March 22, 2025: Patient remains on her Sinemet along with Brilinta and aspirin for new onset Parkinson's and TIA. Neurology is following. She is also on B12 folic acid replacement. There is no major complaints today. She will go to [facility] tomorrow Microbiology 03/18/25 17:30 Urine,Voided Urine Culture - Final Proteus mirabilis Continues on Brilinta, aspirin, Sinemet, Senokot S, MiraLAX .significant clinical improvement. Currently sitting up in chair, reporting sacral discomfort. denies chest pain, palpitations or shortness of breath. Denies lightheadedness, dizziness or focal deficits. Patient will be discharged to subacute rehab today in a stable condition with guarded prognosis. The impression and plan of care has been dictated as directed. : I performed a history and examination of this patient, discussed the same with the dictator. I agree with the dictator's note ,documented as a scribe. Any additional findings or plans will be noted. Patient Condition at Discharge: Stable Plan - Discharge Summary Discharge Rx Participant: No New Discharge Prescriptions: New Aspirin 81 mg PO DAILY tab Chlorhexidine Gluconate [Peridex] 15 ml MUCOUS MEM BID ml Carbidopa-Levodopa 25-100 mg [Sinemet 25-100 mg] 1 each PO BID tab Ticagrelor [Brilinta] 90 mg PO BID tab Folic Acid 1 mg PO DAILY tab polyethylene glycoL 3350 [Miralax] 17 gm PO DAILY packet Acetaminophen Tab [Tylenol] 650 mg PO Q6HR PRN tab PRN Reason: Mild Pain Or Fever > 100.5 traMADol HCl [Ultram] 50 mg PO Q6H PRN 3 Days #12 tab PRN Reason: Pain 4-6 Cyanocobalamin [Vitamin B-12] 500 mcg PO DAILY #30 tablet Continue Levothyroxine Sodium [Synthroid] 50 mcg PO DAILY Lansoprazole [Prevacid 24Hr OTC] 15 mg PO BID No Action Atorvastatin [Lipitor] 20 mg PO DAILY Discharge Medication List Atorvastatin [Lipitor] 20 mg PO DAILY 03/13/25 [History] Lansoprazole [Prevacid 24Hr OTC] 15 mg PO BID 03/13/25 [History] Levothyroxine Sodium [Synthroid] 50 mcg PO DAILY 03/13/25 [History] Acetaminophen Tab [Tylenol] 650 mg PO Q6HR PRN tab 03/23/25 [Rx] Aspirin 81 mg PO DAILY tab 03/23/25 [Rx] Carbidopa-Levodopa 25-100 mg [Sinemet 25-100 mg] 1 each PO BID tab 03/23/25 [Rx] Chlorhexidine Gluconate [Peridex] 15 ml MUCOUS MEM BID ml 03/23/25 [Rx] Cyanocobalamin [Vitamin B-12] 500 mcg PO DAILY #30 tablet 03/23/25 [Rx] Folic Acid 1 mg PO DAILY tab 03/23/25 [Rx] Ticagrelor [Brilinta] 90 mg PO BID tab 03/23/25 [Rx] polyethylene glycoL 3350 [Miralax] 17 gm PO DAILY packet 03/23/25 [Rx] traMADol HCl [Ultram] 50 mg PO Q6H PRN 3 Days #12 tab 03/23/25 [Rx] Follow up Appointment(s)/Referral(s): Trang Bledsoe PAC [PHYSICIAN STAFF FIELD ENGINEER] - As Needed Jose Antonio Sainz Jr, DO [Primary Care Provider] - 1-2 days Tristan Bryant MD [STAFF PHYSICIAN] - 1-2 days Activity/Diet/Wound Care/Special Instructions: [facility] subacute rehab CBC, BMP in 3 days Discharge Disposition: TRANSFER TO SNF/ECF
[2025-03-23 12:28] VITALS: BP 169/103; PULSE 91
== END 2025-03-23 15:06 | DRG 69 ==
LOC: EC 14:25 → 6NMEDSUR 20:09 → OBSVTOIN 03-19 10:15 → 3SCARD 03-19 15:42
PROVIDERS: ADMIT Family Medicine; ATTEND Family Medicine
PROC: 4A10X4Z Monitoring of Central Nervous Electrical Activity, External Approach (ICD-10-PCS; principal; 2025-03-20)
DX: G45.9 Transient cerebral ischemic attack, unspecified (principal); G20.A1 Parkinson's disease without dyskinesia, without mention of fluctuations; R47.01 Aphasia; I10 Essential (primary) hypertension; E03.9 Hypothyroidism, unspecified; N39.0 Urinary tract infection, site not specified; K05.10 Chronic gingivitis, plaque induced; B96.4 Proteus (mirabilis) (morganii) as the cause of diseases classified elsewhere; K59.00 Constipation, unspecified; M19.90 Unspecified osteoarthritis, unspecified site; M40.204 Unspecified kyphosis, thoracic region; M60.9 Myositis, unspecified; R29.6 Repeated falls; M53.3 Sacrococcygeal disorders, not elsewhere classified; K21.9 Gastro-esophageal reflux disease without esophagitis; E78.5 Hyperlipidemia, unspecified; R47.02 Dysphasia; W01.0XXA Fall on same level from slipping, tripping and stumbling without subsequent striking against object, initial encounter; Y92.009 Unspecified place in unspecified non-institutional (private) residence as the place of occurrence of the external cause; Z79.02 Long term (current) use of antithrombotics/antiplatelets; Z79.82 Long term (current) use of aspirin; Z79.890 Hormone replacement therapy; Z79.899 Other long term (current) drug therapy; Z87.442 Personal history of urinary calculi; Z86.73 Personal history of transient ischemic attack (TIA), and cerebral infarction without residual deficits
CPT/HCPCS: 36415; 70450; 70496; 70498; 70551; 71046; 72220; 80048; 80053; 80061; 81001; 82550; 82552; 82607; 82746; 83036; 83735; 84100; 84443; 85025; 85027; 85652; 86140; 87077; 87086; 87186; 93005; 93306; 94760; 95816; 96361; 96365; 96375; 99285